=== PATIENT | male | born 1960 | race Caucasian/White ===

== ENCOUNTER → 2017-07-18 14:27 | Outpatient (CLI) | payer OTHER, SELFPAY ==
[2017-07-18 14:47] LABS: Hematocrit 37.7 % (40-54); Hemoglobin 12.6 g/dl (13.0-16.5); Mean Corp Hgb Conc 33.4 g/gl (32-36); Mean Corpuscular Hgb 28.1 pg (27.0-32.0); Mean Platelet Vol. 9.5 fl (6.2-12.0); Platelet Count 253 K/mm3 (150-450); RBC Distribution Width CV 13.4 % (11.6-14.6); RBC Distribution Width SD 40.4 fl (35.1-43.9); Red Blood Count 4.49 M/mm3 (4.6-6.2); White Blood Count 4.4 K/mm3 (4.4-11.0)
[2017-07-18 14:49] LABS: Scan Indicated on CBC? Y/N NO
[2017-07-18 15:19] LABS: Anion Gap 7 (5-15); BUN 24 mg/dL (7-18); BUN/Creat Ratio 16.6 RATIO (10-20); Calcium,Total 8.5 mg/dL (8.5-10.1); Chloride 112 mmol/L (98-107); Creatinine, Serum 1.45 mg/dL (0.70-1.30); EST Glomerular Filtration Rate 53 mL/min (>60); Est Glom Filt Rate - Afr Amer 65 mL/min (>60); Ferritin 9 ng/mL (26-388); Free T3 2.9 pg/mL (2.18-3.98); Glucose 91 mg/dL (74-106); Iron 49 ug/dL (65-175); Iron Binding Capacity,Total 338 ug/dL (250-450); Potassium 4.3 mmol/L (3.5-5.1); Sodium Level 145 mmol/L (136-145); T4 Free Direct 1.18 ng/dL (0.76-1.46); Thyroid Stim Hormone (TSH) 0.57 uIU/mL (0.358-3.74)
== END ==
PROVIDERS: Family Provider Family Medicine Geriatric Medicine; PCP Family Medicine Geriatric Medicine; Visit Provider Internal Medicine Endocrinology, Diabetes & Metabolism
DX: D53.9 Nutritional anemia, unspecified (principal); E03.9 Hypothyroidism, unspecified
CPT/HCPCS: 36415; 80048; 82728; 83540; 83550; 84439; 84443; 84481; 85027

== ENCOUNTER 2017-07-22 08:30 | Outpatient (RCR) | payer OTHER, SELFPAY ==
--- NOTE | 2017-05-27 09:28 | HP.SP.AD_ITS ---
History - History Date of Eval: 05/22/17 Medical Diagnosis (from RX): Cognitive deficits s/p brain surgery Date of Onset of Diagnosis: December 2016 Previous speech therapy: Yes Other Relevant Medical History/Diagnoses/Surgery: Chemo and radation with last tx May 06, 2017. Brain surgery on 02-03-17 Medications related to this diagnosis: Nel Smoking Status: Never smoker Hx Smoking: No Hx Tobacco Use: No - Pain Is pain an issue with your current prescribed condition?: No - Personal Occupation: public transit bus driver for [employer] Right Hearing Abillity: Normal Left Hearing Abillity: Normal Visual Assistive Devices: Glasses Patients Living Arrangements: With Significant Other Patient Allergies - Allergies Allergies doxycycline Allergy (Verified 12/18/16 23:33) Rash ciprofloxacin [From Cipro] Adverse Reaction (Verified 12/18/16 23:33) Nausea/Vom/Diarrhea CLQT - CLQT CLQT Administered: Yes CLQT: Cognitive Linguistic Quick Test (CLQT) is a criterion - referenced assessment designed for adults between the ages of 18 and 89 with known or suspected neurological dysfuntions. The CLQT is to assess strength and weaknesses in five cognitive domains. Severity ratings are within normal limits , mild, moderate, severe deficits. The subtests are as follows: Date: 05/27/17 - Attention Attention: Moderate - Memory Memory: WNL - Executive Functions Executive Functions: Moderate - Language Language: WNL - Visuospatial Skills Visuospatial Skills: Moderate - CLQT Comments Analysis Noted significant attention issues which impacted multiple subtests. He was able to recall 03/01 details of a short story but maintained the intgrety of the story during retelling. His divided attention was noted to be severely impaired. When he heard a sound outside the room, he immediately lost attention to task and was unable to resume it. He was distracted by snow and the shades on the wall that snow made during testing. His reported that he can't not follow through on multistep tasks. Conversation In conversation he was easily distracted and often lost his train of thought. He was able to regain the conversation 50% of the time after given cues. He is very concerned with this aspect as he does interact with his clients often. He intermittently had difficulty with recalling a specific word in conversation also. Plan - Plan Plan: Speech therapy is warranted for asphasia and cognitive deficits. - Recommendations Treatment Warranted: Yes - Frequency Frequency: 2x /Week Duration: 8 weeks Visits in this POC: 16 - Prognosis Prognosis: Good - Goals that are Established: Determination:: Goals will be added/modified as deemed necessary and appropriate. Therapy will be discontinued when results of re-evaluation indicate therapy is no longer needed or lack of progress has been documented. - Goal #1-5 Goal #1: Kye will complete tasks with and without distractions such as sorting , puzzles, word seraches, etc on 4/5 trials to increase attention to task. Goal #2: Kye will use compensatory strategies for word finding deficits on 4/ 5 trials independently. Goal #3: Kye will complete executive functioning tasks such as problem solving , deduction, and reasoning on 4/5 trials. Education - Patient has Indicated that the Following Identified Educational Needs: Cognitively Impaired - Patient Instruction Patient Education: Diagnosis, Treatment Plan, Goals, Home Exercise Program Person Taught: Patient, Family Teaching Method: Discussion Response to teaching: Verbalize understanding
--- NOTE | 2017-09-10 08:17 | HP.SP.DC ---
ST Discharge Summary - Discharged: Discharge: Kye Ruth is discharged from [facility] as of July 22, 2017. He attended a total of 10 visits since his initial evaluation on May 22, 2017. His goals focused on increasing attention, use compensatory strategies to decrease word finding deficits and executive functioning tasks/reasoning tasks. Initially he had very limited attention but by discharge he was able to complete an entire card game with appropriate attention. He was able to divide attention between conversation and other tasks when previous he would have to stop conversation completely to complete an alternate task. By the end of therapy he was exhibiting very minimal word finding deficits and the patient was able to use strategies effectively to continue communication. Initially he was not able to plan, organize, or use judgment to fully thinking through problem solving tasks. His reasoning skills increased significantly to the point that he was able to fully explain rational for 80% of tasks. He continued to show mildly slower processing time but other cognitive goals have been met. He reports attention deficits at home and was given strategies for home carry over to decrease deficits. He requested discharge due to financial reasons. A copy of this discharge summary will be sent to his referring physician.
== END 2017-07-22 19:00 | disposition home or self-care (01) ==
LOC: SP 08:30
PROVIDERS: Family Provider Family Medicine Geriatric Medicine; PCP Family Medicine Geriatric Medicine; Visit Provider Nurse Practitioner Adult Health
DX: R41.89 Other symptoms and signs involving cognitive functions and awareness (principal)
CPT/HCPCS: 92507; 92523

== ENCOUNTER → 2017-09-12 11:21 | Outpatient (CLI) | payer OTHER, SELFPAY ==
[2017-09-12 12:32] LABS: Absolute Lymphocyte Count 1.12 X10^3/ul (0.83-4.51); Absolute Neutrophil Count 2.8 X10^3/uL (2.0-7.7); Basophil# 0.03 X10^3/uL; Basophil% 0.7 % (0-1); Eosinophil# 0.21 X10^3/uL; Eosinophils% 4.6 % (0-5); Hematocrit 39.1 % (40-54); Lymphocyte # 1.12 X10^3/ul (4.0); Lymphocyte % 24.4 % (19-41); Mean Corp Hgb Conc 33.2 g/gl (32-36); Mean Corpuscular Volume 81.1 fL (80-94); Mean Platelet Vol. 9.6 fl (6.2-12.0); Monocyte% 8.7 % (0-10); Neutrophil # 2.83 X10^3/uL (2.7-7.7); Neutrophil % 61.6 % (47-70); Platelet Count 228 K/mm3 (150-450); RBC Distribution Width CV 13.4 % (11.6-14.6); RBC Distribution Width SD 39.6 fl (35.1-43.9); Red Blood Count 4.82 M/mm3 (4.6-6.2); White Blood Count 4.6 K/mm3 (4.4-11.0)
[2017-09-12 12:56] LABS: ALB/GLOB Ratio 1.1 RATIO (0.9-2.4); AST(SGOT) 16 U/L (15-37); Alanine Aminotransfer ALT/SGPT 25 U/L (16-61); Albumin, Serum 3.8 g/dL (3.2-5.0); Alkaline Phosphatase 93 U/L (45-117); Anion Gap 7 (5-15); BUN 23 mg/dL (7-18); BUN/Creat Ratio 17.3 RATIO (10-20); Calcium,Total 8.7 mg/dL (8.5-10.1); Chloride 109 mmol/L (98-107); Creatinine, Serum 1.33 mg/dL (0.70-1.30); EST Glomerular Filtration Rate 59 mL/min (>60); Est Glom Filt Rate - Afr Amer 71 mL/min (>60); Globulin 3.5 g/dL (2.2-4.2); Glucose 83 mg/dL (74-106); Potassium 4.7 mmol/L (3.5-5.1); Protein, Total 7.3 g/dL (6.4-8.2); Sodium Level 143 mmol/L (136-145); Thyroid Stim Hormone (TSH) 4.06 uIU/mL (0.358-3.74)
[2017-09-12 13:09] LABS: POSITIVE COUNT NO; POSITIVE DIFFERENTIAL NO; POSITIVE MORPHOLOGY NO
[2017-09-13 14:15] LABS: Hep C Antibodies <0.1 s/co ratio (0.0-0.9)
== END ==
PROVIDERS: Family Provider Family Medicine Geriatric Medicine; PCP Family Medicine Geriatric Medicine; Visit Provider Family Medicine Geriatric Medicine
DX: R53.83 Other fatigue (principal); Z12.5 Encounter for screening for malignant neoplasm of prostate; Z13.89 Encounter for screening for other disorder
CPT/HCPCS: 36415; 80053; 84443; 85025; 86803

== ENCOUNTER → 2018-02-20 11:45 | Outpatient (CLI) | payer OTHER, SELFPAY ==
[2018-02-20 12:45] LABS: Absolute Lymphocyte Count 1.35 X10^3/ul (0.83-4.51); Absolute Neutrophil Count 4.5 X10^3/uL (2.0-7.7); Basophil# 0.03 X10^3/uL; Basophil% 0.5 % (0-1); Eosinophils% 4.5 % (0-5); Hemoglobin 13.1 g/dl (13.0-16.5); Lymphocyte # 1.35 X10^3/ul (4.0); Lymphocyte % 20.4 % (19-41); Mean Corp Hgb Conc 33.6 g/gl (32-36); Mean Corpuscular Hgb 29.2 pg (27.0-32.0); Mean Corpuscular Volume 86.9 fL (80-94); Mean Platelet Vol. 10.3 fl (6.2-12.0); Monocyte# 0.43 X10^3/uL; Monocyte% 6.5 % (0-10); Neutrophil # 4.51 X10^3/uL (2.7-7.7); Neutrophil % 67.9 % (47-70); Platelet Count 224 K/mm3 (150-450); RBC Distribution Width CV 13.9 % (11.6-14.6); RBC Distribution Width SD 42.2 fl (35.1-43.9); Red Blood Count 4.49 M/mm3 (4.6-6.2); White Blood Count 6.6 K/mm3 (4.4-11.0)
[2018-02-20 12:49] LABS: POSITIVE COUNT NO; POSITIVE DIFFERENTIAL NO; POSITIVE MORPHOLOGY NO
[2018-02-20 13:14] LABS: ALB/GLOB Ratio 0.9 RATIO (0.9-2.4); AST(SGOT) 12 U/L (15-37); Alanine Aminotransfer ALT/SGPT 21 U/L (16-61); Albumin, Serum 3.3 g/dL (3.2-5.0); Alkaline Phosphatase 99 U/L (45-117); Anion Gap 6 (5-15); BUN 24 mg/dL (7-18); BUN/Creat Ratio 19.7 RATIO (10-20); Calcium,Total 8.4 mg/dL (8.5-10.1); Chloride 109 mmol/L (98-107); Creatinine, Serum 1.22 mg/dL (0.70-1.30); EST Glomerular Filtration Rate 65 mL/min (>60); Est Glom Filt Rate - Afr Amer 79 mL/min (>60); Free T3 2.1 pg/mL (2.18-3.98); Globulin 3.5 g/dL (2.2-4.2); Glucose 92 mg/dL (74-106); Potassium 4.1 mmol/L (3.5-5.1); Protein, Total 6.8 g/dL (6.4-8.2); Sodium Level 141 mmol/L (136-145); T4 Free Direct 1.06 ng/dL (0.76-1.46); Thyroid Stim Hormone (TSH) 4.48 uIU/mL (0.358-3.74)
== END ==
PROVIDERS: Family Provider Family Medicine Geriatric Medicine; PCP Family Medicine Geriatric Medicine; Referring Provider Internal Medicine Endocrinology, Diabetes & Metabolism; Visit Provider Internal Medicine Endocrinology, Diabetes & Metabolism
DX: E03.9 Hypothyroidism, unspecified (principal)
CPT/HCPCS: 36415; 80053; 84439; 84443; 84481; 85025

== ENCOUNTER → 2018-03-23 10:05 | Outpatient (CLI) | payer OTHER, SELFPAY ==
[2018-03-23 12:04] LABS: ALB/GLOB Ratio 1.1 RATIO (0.9-2.4); AST(SGOT) 14 U/L (15-37); Alanine Aminotransfer ALT/SGPT 23 U/L (16-61); Albumin, Serum 3.6 g/dL (3.2-5.0); Alkaline Phosphatase 105 U/L (45-117); Anion Gap 11 (5-15); BUN 23 mg/dL (7-18); BUN/Creat Ratio 19.5 RATIO (10-20); Calcium,Total 8.5 mg/dL (8.5-10.1); Chloride 108 mmol/L (98-107); Creatinine, Serum 1.18 mg/dL (0.70-1.30); EST Glomerular Filtration Rate 67 mL/min (>60); Est Glom Filt Rate - Afr Amer 82 mL/min (>60); Free T3 2.6 pg/mL (2.18-3.98); Globulin 3.3 g/dL (2.2-4.2); Glucose 85 mg/dL (74-106); Potassium 4.2 mmol/L (3.5-5.1); Protein, Total 6.9 g/dL (6.4-8.2); Sodium Level 144 mmol/L (136-145); T4 Free Direct 1.32 ng/dL (0.76-1.46); Thyroid Stim Hormone (TSH) 1.35 uIU/mL (0.358-3.74)
== END ==
PROVIDERS: Family Provider Family Medicine Geriatric Medicine; PCP Family Medicine Geriatric Medicine; Referring Provider Internal Medicine Endocrinology, Diabetes & Metabolism; Visit Provider Internal Medicine Endocrinology, Diabetes & Metabolism
DX: E03.9 Hypothyroidism, unspecified (principal)
CPT/HCPCS: 36415; 80053; 84439; 84443; 84481

== ENCOUNTER → 2018-08-13 15:25 | Outpatient (CLI) | payer OTHER, SELFPAY ==
[2018-08-13 17:00] LABS: ALB/GLOB Ratio 1.2 RATIO (0.9-2.4); AST(SGOT) 16 U/L (15-37); Alanine Aminotransfer ALT/SGPT 22 U/L (16-61); Albumin, Serum 3.7 g/dL (3.2-5.0); Alkaline Phosphatase 93 U/L (45-117); Anion Gap 6 (5-15); BUN 25 mg/dL (7-18); BUN/Creat Ratio 18.7 RATIO (10-20); Calcium,Total 8.4 mg/dL (8.5-10.1); Chloride 112 mmol/L (98-107); Creatinine, Serum 1.34 mg/dL (0.70-1.30); EST Glomerular Filtration Rate 58 mL/min (>60); Est Glom Filt Rate - Afr Amer 70 mL/min (>60); Free T3 2.1 pg/mL (2.18-3.98); Globulin 3.1 g/dL (2.2-4.2); Glucose 94 mg/dL (74-106); Potassium 4.5 mmol/L (3.5-5.1); Protein, Total 6.8 g/dL (6.4-8.2); Sodium Level 145 mmol/L (136-145); T4 Free Direct 1.08 ng/dL (0.76-1.46); Thyroid Stim Hormone (TSH) 4.08 uIU/mL (0.358-3.74)
== END ==
PROVIDERS: Family Provider Family Medicine Geriatric Medicine; PCP Family Medicine Geriatric Medicine; Referring Provider Internal Medicine Endocrinology, Diabetes & Metabolism; Visit Provider Internal Medicine Endocrinology, Diabetes & Metabolism
DX: E03.9 Hypothyroidism, unspecified (principal)
CPT/HCPCS: 36415; 80053; 84439; 84443; 84481

== ENCOUNTER → 2018-09-14 | Outpatient (CLI) | payer OTHER, SELFPAY ==
[2018-09-14 12:36] LABS: Absolute Lymphocyte Count 1.38 X10^3/ul (0.83-4.51); Basophil# 0.03 X10^3/uL; Basophil% 0.6 % (0-1); Eosinophil# 0.24 X10^3/uL; Eosinophils% 4.7 % (0-5); Hematocrit 42.5 % (40-54); Hemoglobin 14.9 g/dl (13.0-16.5); Lymphocyte # 1.38 X10^3/ul (4.0); Lymphocyte % 27.2 % (19-41); Mean Corp Hgb Conc 35.1 g/gl (32-36); Mean Corpuscular Hgb 30.6 pg (27.0-32.0); Mean Corpuscular Volume 87.3 fL (80-94); Mean Platelet Vol. 10.1 fl (6.2-12.0); Monocyte# 0.38 X10^3/uL; Monocyte% 7.5 % (0-10); Neutrophil # 3.03 X10^3/uL (2.7-7.7); Neutrophil % 59.6 % (47-70); Platelet Count 222 K/mm3 (150-450); RBC Distribution Width CV 12.8 % (11.6-14.6); RBC Distribution Width SD 39.9 fl (35.1-43.9); Red Blood Count 4.87 M/mm3 (4.6-6.2); White Blood Count 5.1 K/mm3 (4.4-11.0)
[2018-09-14 12:47] LABS: POSITIVE COUNT NO; POSITIVE DIFFERENTIAL NO; POSITIVE MORPHOLOGY NO
[2018-09-14 13:01] LABS: ALB/GLOB Ratio 1.1 RATIO (0.9-2.4); AST(SGOT) 14 U/L (15-37); Alanine Aminotransfer ALT/SGPT 26 U/L (16-61); Albumin, Serum 3.5 g/dL (3.2-5.0); Alkaline Phosphatase 97 U/L (45-117); Anion Gap 10 (5-15); BUN 22 mg/dL (7-18); BUN/Creat Ratio 15.1 RATIO (10-20); Calcium,Total 8.4 mg/dL (8.5-10.1); Chloride 108 mmol/L (98-107); Creatinine, Serum 1.46 mg/dL (0.70-1.30); EST Glomerular Filtration Rate 53 mL/min (>60); Est Glom Filt Rate - Afr Amer 64 mL/min (>60); Globulin 3.2 g/dL (2.2-4.2); Glucose 89 mg/dL (74-106); Potassium 4.3 mmol/L (3.5-5.1); Protein, Total 6.7 g/dL (6.4-8.2); Sodium Level 143 mmol/L (136-145); Thyroid Stim Hormone (TSH) 1.98 uIU/mL (0.358-3.74)
== END | disposition home or self-care (01) ==
LOC: POLAB3 08:47
PROVIDERS: Family Provider Family Medicine Geriatric Medicine; PCP Family Medicine Geriatric Medicine; Visit Provider Family Medicine Geriatric Medicine
DX: R53.83 Other fatigue (principal)
CPT/HCPCS: 36415; 80053; 84443; 85025

== ENCOUNTER → 2018-11-04 14:20 | Outpatient (CLI) | payer OTHER, SELFPAY ==
[2018-11-04 15:43] LABS: Erythrocyte Sedimentation Rate 3 mm/hr (0-20)
[2018-11-04 15:44] LABS: Anion Gap 8 (5-15); BUN 30 mg/dL (7-18); CRP 2.94 mg/L (0.0-3.0); Calcium,Total 8.7 mg/dL (8.5-10.1); Chloride 109 mmol/L (98-107); Creatinine, Serum 1.25 mg/dL (0.70-1.30); EST Glomerular Filtration Rate 63 mL/min (>60); Est Glom Filt Rate - Afr Amer 76 mL/min (>60); Glucose 97 mg/dL (74-106); Potassium 4.2 mmol/L (3.5-5.1); Sodium Level 142 mmol/L (136-145); Uric Acid 5.6 mg/dL (3.5-7.2)
[2018-11-04 15:51] LABS: Basophil# 0.04 X10^3/uL; Basophil% 0.5 % (0-1); Eosinophils% 2.5 % (0-5); Hematocrit 42.4 % (40-54); Hemoglobin 14.6 g/dL (13.0-16.5); Lymphocyte % 15.1 % (19-41); Mean Corp Hgb Conc 34.4 g/dL (32-36); Mean Corpuscular Hgb 30.7 pg (27.0-32.0); Mean Corpuscular Volume 89.1 fL (80-94); Mean Platelet Vol. 9.8 fl (6.2-12.0); Monocyte% 6.3 % (0-10); NRBC Flagged by Analyzer 0 % (0-5); Neutrophil # 5.99 X10^3/uL (2.7-7.7); Neutrophil % 75.3 % (47-70); Platelet Count 215 K/mm3 (150-450); RBC Distribution Width CV 12.4 % (11.6-14.6); RBC Distribution Width SD 40.1 fl (35.1-43.9); Red Blood Count 4.76 M/mm3 (4.6-6.2)
== END ==
PROVIDERS: Family Provider Family Medicine Geriatric Medicine; PCP Family Medicine Geriatric Medicine; Visit Provider Family Medicine Geriatric Medicine
DX: M10.9 Gout, unspecified (principal)
CPT/HCPCS: 36415; 80048; 84550; 85025; 85652; 86140

== ENCOUNTER → 2018-11-04 14:55 | Outpatient (CLI) | payer OTHER, SELFPAY ==
--- NOTE | 2018-11-04 15:00 | RAD_ITS ---
STUDY: X-RAY - RIGHT HAND REASON FOR EXAM: Male, 58 years old. Right arm pain started today TECHNIQUE: 3 view(s) of the hand. COMPARISON: 03/06/2015 FINDINGS: Mild radiocarpal osteoarthritis. Stable osteoarthritis of the distal radioulnar joint. Normal visualized carpal bones. Normal carpal articulations Normal carpometacarpal articulation of the thumb. Normal second through fifth carpometacarpal joints. Stable remote deformity of the fifth metacarpal. Normal metacarpophalangeal joint of the thumb. Normal interphalangeal joint of the thumb. Normal proximal and distal phalanges of the thumb. Normal metacarpophalangeal joints of the second through fifth fingers. Normal proximal and distal interphalangeal joints of the second through fifth fingers. Stable remote deformity of the second distal phalanx. Calcifications of the triangle fibrocartilage. RAD/Hand Min 3 Views IMPRESSION: Multiple degenerative changes as described. No acute osseous abnormality is evident. Electronically Signed: Jimmy Vasquez MD at 15:29 EDT Tel , Service support ,
--- NOTE | 2018-11-04 15:02 | RAD_ITS ---
STUDY: X-RAY - RIGHT ELBOW REASON FOR EXAM: Male, 58 years old. Right arm pain started yesterday TECHNIQUE: 3 view(s) of the elbow. COMPARISON: None. FINDINGS: Remote deformity of the mid radius. Chondrocalcinosis involving the radiocapitellar joint. Calcific tendinitis of the triceps. RAD/Elbow min 3 Views IMPRESSION: Chondrocalcinosis involving the radiocapitellar joint. Calcific tendinitis of the triceps. No acute osseous abnormality is evident. Electronically Signed: Jimmy Vasquez MD at 15:32 EDT Tel , Service support ,
--- NOTE | 2018-11-04 15:02 | RAD_ITS ---
STUDY: X-RAY - RIGHT WRIST REASON FOR EXAM: Male, 58 years old. Right arm pain started today TECHNIQUE: 3 view(s) of the wrist were obtained. COMPARISON: None. FINDINGS: Normal visualized distal radius and ulna. Mild radiocarpal osteoarthritis. Stable osteoarthritis of the distal radioulnar joint. Normal carpal bones. Normal carpal articulations. Normal carpometacarpal articulation of the thumb. Normal second through fifth carpometacarpal articulations. Normal visualized metacarpal bones. Calcifications of the triangle fibrocartilage. RAD/Wrist min 3 Views IMPRESSION: Mild radiocarpal osteoarthritis. Stable osteoarthritis of the distal radioulnar joint. Calcifications of the triangle fibrocartilage. Electronically Signed: Jimmy Vasquez MD at 15:59 EDT Tel , Service support ,
--- NOTE | 2018-11-04 15:04 | VDUE_ITS ---
Reason For Study: Localized edema Right Proximal Left Proximal Right jugular vein is spontaneous, widely Left jugular vein is spontaneous, widely patent, phasic, with no intraluminal patent, phasic, with no intraluminal echogenicity noted. echogenicity noted. Right subclavian vein is spontaneous, widely Left subclavian vein is spontaneous, widely patent, phasic, with no intraluminal patent, phasic, with no intraluminal echogenicity noted. echogenicity noted. Right Lower Arm Left Arm Right radial vein is compressible. Left axillary vein is spontaneous, patent, Right ulnar vein is compressible. phasic, competent, compressible and Right Arm demonstrates augmentation. Right axillary vein is spontaneous, patent, Left brachial vein is compressible. phasic, competent, compressible and Left cephalic vein is compressible. demonstrates augmentation. Left basilic vein is compressible. Right brachial vein is compressible. Left Lower Arm Right cephalic vein is compressible. Left radial vein is compressible. Right basilic vein is compressible. Left ulnar vein is compressible. Nonvascularized palpable structure noted in the right mid bicep measuring approximently 1.89 x 2.13 x 2.68 cm. Patient Safety Prelim to [place]. Interpretation Summary Deep veins of the upper extremities are bilaterally patent and compressible segmentally. There is no evidence of deep vein thrombosis on either side. The superficial veins of the upper extremities, the basilic and cephalic veins, are patent and compressible bilaterally. There is no evidence of upper extremity superficial thrombophlebitis involving the veins imaged. A non-vascular, hypoechoic structure is noted in the right mid-bicep, measuring 1.89 cm x 2.13 cm x 2.68 cm. This may represent a hematoma. Clinical correlation is advised. Ordering Physician: Tamir Ireland Referring Physician: Tamir Ireland Chi Performed By: Jenniffer Curry RVT ?
--- NOTE | 2018-11-04 16:15 | CT_ITS ---
STUDY: CT BRAIN WITHOUT CONTRAST REASON FOR EXAM: Male, 58 years old. BRAIN CANCER - GLIOMA WITH REMOVAL AND RADIATION AND CHEMO. HISTORY OF KIDNEY AND BLADDER CANCER ALSO RADIATION DOSAGE (If Supplied By Facility): CTDIvol = ( 44.99 ) mGy, DLP = ( 829.85 ) mGycm TECHNIQUE: Transaxial CT imaging of the brain was performed without administration of intravenous contrast material. Individualized dose optimization techniques were used for this CT. COMPARISON: 12/19/2016 FINDINGS: Normal soft tissue structures. Left frontal craniotomy. Bilateral retinal calcifications. Normal size ventricles and extra-axial spaces for the patient's age. Left frontal postoperative encephalomalacia and gliosis. Normal basal ganglia and thalami. Normal brainstem. Normal cerebellum. There is no intracranial hemorrhage. There are no findings of an acute ischemic infarction. Normal visualized paranasal sinuses. CT/Brain/Head without Contrast IMPRESSION: Left frontal postoperative encephalomalacia and gliosis. No new intracranial mass effect. No CT evidence of acute infarct or hemorrhage. Electronically Signed: Jimmy Vasquez MD at 16:46 EDT Tel , Service support ,
== END ==
PROVIDERS: Family Provider Family Medicine Geriatric Medicine; PCP Family Medicine Geriatric Medicine; Referring Provider Family Medicine Geriatric Medicine; Visit Provider Family Medicine Geriatric Medicine
DX: M25.521 Pain in right elbow (principal); M79.601 Pain in right arm; C71.9 Malignant neoplasm of brain, unspecified; R60.0 Localized edema
CPT/HCPCS: 70450; 73080; 73110; 73130; 93970

== ENCOUNTER → 2019-02-23 11:23 | Outpatient (CLI) | payer OTHER, SELFPAY ==
[2019-02-23 14:47] LABS: ALB/GLOB Ratio 1.2 RATIO (0.9-2.4); AST(SGOT) 17 U/L (15-37); Alanine Aminotransfer ALT/SGPT 27 U/L (16-61); Albumin, Serum 3.8 g/dL (3.2-5.0); Alkaline Phosphatase 104 U/L (45-117); Anion Gap 6 (5-15); BUN 21 mg/dL (7-18); BUN/Creat Ratio 15.3 RATIO (10-20); Calcium,Total 8.5 mg/dL (8.5-10.1); Chloride 108 mmol/L (98-107); Cholesterol 191 mg/dL (200); Creatinine, Serum 1.37 mg/dL (0.70-1.30); EST Glomerular Filtration Rate 57 mL/min (>60); Est Glom Filt Rate - Afr Amer 69 mL/min (>60); Free T3 2.1 pg/mL (2.18-3.98); Globulin 3.3 g/dL (2.2-4.2); Glucose 81 mg/dL (74-106); High Density Lipoprotein 44 mg/dL; Potassium 3.8 mmol/L (3.5-5.1); Protein, Total 7.1 g/dL (6.4-8.2); Sodium Level 139 mmol/L (136-145); T4 Free Direct 1.21 ng/dL (0.76-1.46); Thyroid Stim Hormone (TSH) 2.49 uIU/mL (0.358-3.74); Triglycerides 242 mg/dL; Very Low Density Lipoprotein 48 mg/dL (5-40)
== END ==
PROVIDERS: Family Provider Family Medicine Geriatric Medicine; PCP Family Medicine Geriatric Medicine; Referring Provider Internal Medicine Endocrinology, Diabetes & Metabolism; Visit Provider Internal Medicine Endocrinology, Diabetes & Metabolism
DX: E03.9 Hypothyroidism, unspecified (principal)
CPT/HCPCS: 36415; 80053; 80061; 84439; 84443; 84481

== ENCOUNTER → 2019-03-24 15:59 | Outpatient (CLI) | payer OTHER, SELFPAY | PROVIDERS: Family Provider Family Medicine Geriatric Medicine; PCP Family Medicine Geriatric Medicine; Visit Provider Family Medicine Geriatric Medicine | DX: N39.0 Urinary tract infection, site not specified (principal) | CPT/HCPCS: 87077; 87086; 87088; 87186 ==

== ENCOUNTER → 2019-07-30 10:51 | Outpatient (CLI) | payer OTHER, MEDICARE, SELFPAY ==
--- NOTE | 2019-07-30 11:01 | VDLE_ITS ---
Reason For Study: Pain Procedure LEFT Exam performed in department. GSV is normal. A preliminary report was called and/or faxed CFV is compressible, spontaneous, phasic, to Saeed. competent, and demonstrates normal augmentation. FV is compressible, spontaneous, phasic, competent and demonstrates normal augmentation. POP V is compressible, spontaneous, phasic, competent and demonstrates normal augmentation. T/P Trunk is compressible. PTV is compressible. LT PerV is compressible. Interpretation Summary Deep veins of the left lower extremity are patent and compressible segmentally. There is no evidence of left lower extremity deep vein thrombosis. Valvular competence appears intact within the proximal deep venous system on the left . The left great saphenous vein appears patent and compressible segmentally. Ordering Physician: Marco A Saeed Referring Physician: Tamir Ireland Chi Performed By: Jenniffer Curry RVT
== END ==
PROVIDERS: PCP Family Medicine Geriatric Medicine; Referring Provider Surgery; Visit Provider Surgery
DX: I87.2 Venous insufficiency (chronic) (peripheral) (principal); M79.662 Pain in left lower leg; M79.89 Other specified soft tissue disorders
CPT/HCPCS: 93971

== ENCOUNTER → 2020-02-21 09:02 | Outpatient (CLI) | payer OTHER, MEDICARE, SELFPAY ==
[2020-02-21 12:05] LABS: Absolute Lymphocyte Count 1.14 X10^3/uL (0.83-4.51); Basophil# 0.04 X10^3/uL; Basophil% 0.8 % (0-1); Eosinophil# 0.18 X10^3/uL; Eosinophils% 3.8 % (0-5); Hematocrit 43.8 % (40-54); Hemoglobin 14.5 g/dL (13.0-16.5); Lymphocyte # 1.14 X10^3/ul (4.0); Lymphocyte % 24.1 % (19-41); Mean Corp Hgb Conc 33.1 g/dL (32-36); Mean Corpuscular Volume 90.7 fL (80-94); Mean Platelet Vol. 9.6 fl (6.2-12.0); Monocyte# 0.38 X10^3/uL; NRBC Flagged by Analyzer 0 % (0-5); Neutrophil # 2.99 X10^3/uL (2.7-7.7); Neutrophil % 63.1 % (47-70); Platelet Count 246 K/mm3 (150-450); RBC Distribution Width CV 12.3 % (11.6-14.6); RBC Distribution Width SD 40.5 fl (35.1-43.9); Red Blood Count 4.83 M/mm3 (4.6-6.2); White Blood Count 4.7 K/mm3 (4.4-11.0)
[2020-02-21 13:09] LABS: ALB/GLOB Ratio 1.1 RATIO (0.9-2.4); AST(SGOT) 15 U/L (15-37); Alanine Aminotransfer ALT/SGPT 30 U/L (16-61); Albumin, Serum 3.6 g/dL (3.2-5.0); Alkaline Phosphatase 113 U/L (45-117); Anion Gap 6 (5-15); BUN 23 mg/dL (7-18); BUN/Creat Ratio 16.1 RATIO (10-20); Chloride 110 mmol/L (98-107); Creatinine, Serum 1.43 mg/dL (0.70-1.30); EST Glomerular Filtration Rate 54 mL/min (>60); Est Glom Filt Rate - Afr Amer 65 mL/min (>60); Globulin 3.3 g/dL (2.2-4.2); Glucose 85 mg/dL (74-106); Potassium 4.5 mmol/L (3.5-5.1); Protein, Total 6.9 g/dL (6.4-8.2); Sodium Level 141 mmol/L (136-145); Thyroid Stim Hormone (TSH) 0.41 uIU/mL (0.358-3.74)
== END ==
PROVIDERS: PCP Family Medicine Geriatric Medicine; Visit Provider Family Medicine Geriatric Medicine
DX: R53.83 Other fatigue (principal); M10.9 Gout, unspecified
CPT/HCPCS: 36415; 80053; 84443; 84550; 85025

== ENCOUNTER → 2020-07-05 09:12 | Outpatient (CLI) | payer OTHER, MEDICARE, SELFPAY ==
[2020-07-05 10:22] LABS: Absolute Lymphocyte Count 1.34 X10^3/uL (0.83-4.51); Absolute Neutrophil Count 3.9 X10^3/uL (2.0-7.7); Basophil# 0.06 X10^3/uL; Eosinophil# 0.23 X10^3/uL; Eosinophils% 3.8 % (0-5); Hematocrit 45.5 % (40-54); Hemoglobin 15.4 g/dL (13.0-16.5); Lymphocyte # 1.34 X10^3/ul (4.0); Mean Corp Hgb Conc 33.8 g/dL (32-36); Mean Corpuscular Hgb 30.9 pg (27.0-32.0); Mean Corpuscular Volume 91.2 fL (80-94); Mean Platelet Vol. 9.6 fl (6.2-12.0); Monocyte# 0.56 X10^3/uL; Monocyte% 9.2 % (0-10); NRBC Flagged by Analyzer 0 % (0-5); Neutrophil % 63.8 % (47-70); Platelet Count 297 K/mm3 (150-450); RBC Distribution Width CV 12.5 % (11.6-14.6); RBC Distribution Width SD 41.7 fl (35.1-43.9); Red Blood Count 4.99 M/mm3 (4.6-6.2); White Blood Count 6.1 K/mm3 (4.4-11.0)
[2020-07-05 10:26] LABS: ALB/GLOB Ratio 1.1 RATIO (0.9-2.4); AST(SGOT) 17 U/L (15-37); Alanine Aminotransfer ALT/SGPT 37 U/L (16-61); Albumin, Serum 3.7 g/dL (3.2-5.0); Alkaline Phosphatase 124 U/L (45-117); Anion Gap 5 (5-15); BUN 21 mg/dL (7-18); BUN/Creat Ratio 15.1 RATIO (10-20); Calcium,Total 8.5 mg/dL (8.5-10.1); Chloride 108 mmol/L (98-107); Creatinine, Serum 1.39 mg/dL (0.70-1.30); EST Glomerular Filtration Rate 55 mL/min (>60); Est Glom Filt Rate - Afr Amer 67 mL/min (>60); Globulin 3.4 g/dL (2.2-4.2); Glucose 85 mg/dL (74-106); Potassium 4.1 mmol/L (3.5-5.1); Protein, Total 7.1 g/dL (6.4-8.2); Sodium Level 141 mmol/L (136-145); T4 Free Direct 1.41 ng/dL (0.76-1.46); Thyroid Stim Hormone (TSH) 1.48 uIU/mL (0.358-3.74)
== END ==
PROVIDERS: PCP Family Medicine Geriatric Medicine; Referring Provider Internal Medicine Endocrinology, Diabetes & Metabolism; Visit Provider Internal Medicine Endocrinology, Diabetes & Metabolism
DX: E03.9 Hypothyroidism, unspecified (principal)
CPT/HCPCS: 36415; 80053; 84439; 84443; 85025

== ENCOUNTER → 2020-12-13 10:02 | Outpatient (CLI) | payer OTHER, MEDICARE, SELFPAY ==
[2020-12-13 11:31] LABS: Free T3 2.2 pg/mL (2.18-3.98); Prolactin 8.3 ng/mL; T4 Free Direct 1.13 ng/dL (0.76-1.46)
[2020-12-14 19:41] LABS: Adrenocorticotropic Hormone 23.3 pg/mL (7.2-63.3)
== END ==
PROVIDERS: PCP Family Medicine Geriatric Medicine; Referring Provider Internal Medicine Endocrinology, Diabetes & Metabolism; Visit Provider Internal Medicine Endocrinology, Diabetes & Metabolism
DX: E03.9 Hypothyroidism, unspecified (principal); D49.7 Neoplasm of unspecified behavior of endocrine glands and other parts of nervous system; D32.9 Benign neoplasm of meninges, unspecified
CPT/HCPCS: 36415; 82024; 84146; 84439; 84481

== ENCOUNTER → 2021-02-26 09:07 | Outpatient (CLI) | payer MEDICARE, SELFPAY ==
[2021-02-26 12:38] LABS: Absolute Lymphocyte Count 1.32 X10^3/uL (0.83-4.51); Absolute Neutrophil Count 4.1 X10^3/uL (2.0-7.7); Basophil# 0.04 X10^3/uL; Basophil% 0.6 % (0-1); Eosinophil# 0.21 X10^3/uL; Eosinophils% 3.4 % (0-5); Hematocrit 42.3 % (40-54); Hemoglobin 15.1 g/dL (13.0-16.5); Lymphocyte # 1.32 X10^3/ul (0.83-4.51); Lymphocyte % 21.4 % (19-41); Mean Corp Hgb Conc 35.7 g/dL (32-36); Mean Corpuscular Hgb 31.9 pg (27.0-32.0); Mean Corpuscular Volume 89.2 fL (80-94); Mean Platelet Vol. 9.9 fl (6.2-12.0); Monocyte# 0.46 X10^3/uL; Monocyte% 7.4 % (0-10); NRBC Flagged by Analyzer 0 % (0-5); Neutrophil # 4.13 X10^3/uL (2.7-7.7); Neutrophil % 66.9 % (47-70); Platelet Count 236 K/mm3 (150-450); RBC Distribution Width CV 12.4 % (11.6-14.6); RBC Distribution Width SD 40.7 fl (35.1-43.9); Red Blood Count 4.74 M/mm3 (4.6-6.2); White Blood Count 6.2 K/mm3 (4.4-11.0)
[2021-02-26 12:57] LABS: AST(SGOT) 25 U/L (15-37); Alanine Aminotransfer ALT/SGPT 61 U/L (16-61); Albumin, Serum 3.4 g/dL (3.2-5.0); Alkaline Phosphatase 97 U/L (45-117); Anion Gap 4 (5-15); BUN 22 mg/dL (7-18); BUN/Creat Ratio 14.9 RATIO (10-20); Calcium,Total 8.4 mg/dL (8.5-10.1); Chloride 109 mmol/L (98-107); Creatinine, Serum 1.48 mg/dL (0.70-1.30); EST Glomerular Filtration Rate 51 mL/min (>60); Est Glom Filt Rate - Afr Amer 62 mL/min (>60); Globulin 3.5 g/dL (2.2-4.2); Glucose 98 mg/dL (74-106); PSA,Total - Annual Screen < 0.01 ng/mL (0.00-4.00); Protein, Total 6.9 g/dL (6.4-8.2); Sodium Level 138 mmol/L (136-145); Thyroid Stim Hormone (TSH) 1.04 uIU/mL (0.358-3.74)
== END ==
PROVIDERS: PCP Family Medicine Geriatric Medicine; Visit Provider Family Medicine Geriatric Medicine
DX: R53.83 Other fatigue (principal); M10.9 Gout, unspecified; Z12.5 Encounter for screening for malignant neoplasm of prostate
CPT/HCPCS: 36415; 80053; 84153; 84443; 84550; 85025; G0103

== ENCOUNTER 2021-06-06 19:25 | Emergency (ER) | payer MEDICARE, SELFPAY ==
[2021-06-06] VITALS (10 sets, daily range): BP systolic 71–114; BP diastolic 51–76; PULSE 18–133; RESP 18–24; TEMP 35.1–36.8; O2SAT 87–100; BMI 33.3
--- NOTE | 2021-06-06 19:53 | CT_ITS ---
INDICATION: obstruction EXAMINATION: CT Abdomen And Pelvis W/O Contrast Injection TECHNIQUE: Helically acquired images were obtained of the abdomen and pelvis without the use of IV contrast. A radiation dose optimization technique was used for this scan. Oral contrast: None. COMPARISON: 10/18/2015 FINDINGS: Evaluation of the solid organs and vascular structures is limited without intravenous contrast. Visualized lung bases: Right basilar atelectasis. Liver: Scattered hepatic cysts. Gallbladder: Few small intraluminal stones seen. Spleen: Unremarkable Pancreas: Unremarkable Adrenal Glands: Unremarkable Kidneys: Left kidney is surgically absent. Multiple cysts in the right kidney. Vasculature: Unremarkable GI Tract: Multiple dilated loops of small bowel measuring up to 3.6 cm in diameter. There is a large supraumbilical hernia containing fat and multiple loops of small bowel. Additional smaller left periumbilical hernia is present. Right lower quadrant ileostomy. Left inguinal hernia containing fat and a small segment of the sigmoid colon. Lymphadenopathy: None Peritoneum: No ascites. Bladder: Unremarkable Reproductive organs: Unremarkable Bones/Soft tissues: There are diffuse degenerative changes of the spine. CT/Abdomen/Pelvis without Cont IMPRESSION: Findings concerning for small bowel obstruction with transition point at a periumbilical hernia. Additional smaller left periumbilical hernia is present as well as a left inguinal hernia containing fat and a small segment of sigmoid colon. Electronically Signed: Rudy Valle MD at 21:29 EST ,
[2021-06-06] MEDS: 0.9% Normal Saline 1,000 ML 125 ML IV (20:09)
[2021-06-06] MEDS: Ondansetron 4 MG/2 ML Vial IV (20:09)
[2021-06-06 20:13] LABS: Absolute Lymphocyte Count 1.15 X10^3/uL (0.83-4.51); Absolute Neutrophil Count 13.4 X10^3/uL (2.0-7.7); Basophil# 0.03 X10^3/uL; Basophil% 0.2 % (0-1); Hematocrit 52.7 % (40-54); Hemoglobin 19.1 g/dL (13.0-16.5); Lymphocyte # 1.15 X10^3/ul (0.83-4.51); Lymphocyte % 7.3 % (19-41); Mean Corp Hgb Conc 36.2 g/dL (32-36); Mean Corpuscular Hgb 32.2 pg (27.0-32.0); Mean Corpuscular Volume 88.7 fL (80-94); Mean Platelet Vol. 9.9 fl (6.2-12.0); Monocyte# 1.25 X10^3/uL; Monocyte% 7.9 % (0-10); NRBC Flagged by Analyzer 0 % (0-5); Neutrophil # 13.36 X10^3/uL (2.7-7.7); Neutrophil % 84.3 % (47-70); Platelet Count 361 K/mm3 (150-450); RBC Distribution Width CV 12.5 % (11.6-14.6); RBC Distribution Width SD 40.7 fl (35.1-43.9); Red Blood Count 5.94 M/mm3 (4.6-6.2)
[2021-06-06 20:32] LABS: White Blood Count 15.8 K/mm3 (4.4-11.0)
[2021-06-06 20:35] LABS: AST(SGOT) 18 U/L (15-37); Alanine Aminotransfer ALT/SGPT 49 U/L (16-61); Albumin, Serum 4.2 g/dL (3.2-5.0); Alkaline Phosphatase 103 U/L (45-117); Anion Gap 10 (5-15); BUN 48 mg/dL (7-18); BUN/Creat Ratio 13.1 RATIO (10-20); Calcium,Total 10.6 mg/dL (8.5-10.1); Chloride 104 mmol/L (98-107); Creatinine, Serum 3.67 mg/dL (0.70-1.30); EST Glomerular Filtration Rate 18 mL/min (>60); Est Glom Filt Rate - Afr Amer 22 mL/min (>60); Estimated Creatinine Clearance 18.62 ml/min; Globulin 4.3 g/dL (2.2-4.2); Glucose 165 mg/dL (74-106); Lipase 39 U/L (73-393); Protein, Total 8.5 g/dL (6.4-8.2); Sodium Level 138 mmol/L (136-145)
--- NOTE | 2021-06-06 21:08 | EKG12_ITS ---
Test Reason : WEAKNESS Blood Pressure : / mmHG Vent. Rate : 081 BPM Atrial Rate : 081 BPM P-R Int : 168 ms QRS Dur : 082 ms QT Int : 364 ms P-R-T Axes : 040 012 015 degrees QTc Int : 422 ms Normal sinus rhythm Inferior infarct , age undetermined, cannot be excluded Abnormal ECG Confirmed by KEITH WELSH, REMIGIO ([id number]), brands editor MCKINLEY PANIAGUA ([id number]) on 06/08/2021 1:55:06 PM Referred By: SHAWNA Confirmed By:REMIGIO PARKER MD
[2021-06-06] MEDS: 0.9% Normal Saline 1,000 ML 999 ML IV ×3 (21:11→21:51)
[2021-06-06 21:41] LABS: Troponin-I HS 77 pg/mL (3.0-78.0)
[2021-06-06 21:56] LABS: International Normalized Ratio 1.1; Partial Thromboplast Time 27.4 Seconds (24.1-36.2); Prothrombin Time (Protime)PT. 13.9 SECONDS (11.7-14.9)
--- NOTE | 2021-06-06 22:00 | RAD_ITS ---
INDICATION: sepsis EXAMINATION/TECHNIQUE: X-RAY - XR Chest 1 View COMPARISON: 03/27/2016. FINDINGS: The lungs are clear. The cardiomediastinal silhouette is unremarkable. No pleural effusion or pneumothorax. No acute osseous abnormalities. RAD/Chest 1 View (Portable) IMPRESSION: No acute radiographic abnormalities. Electronically Signed: Rudy Valle MD at 22:44 EST ,
--- NOTE | 2021-06-06 22:41 | EX.ED.DYSGE1 ---
HPI History of Present Illness Chief Complaint: Nausea/Vomiting Informant: patient and spouse/S.O. Onset/Context/Timing Onset: Today Current Severity: Mild Maximum Severity: Severe Associated Symptoms Associated Symptoms: Nausea and vomiting Narrative Narrative: Patient has a remote history of nephrectomy and urostomy for renal cancer. He also had a craniotomy in the past for an unrelated brain tumor. He has a known ventral hernia but has not had issues with it. He presents today for abdominal distention, nausea, vomiting, and no bowel movements. Denies fevers or any other associated symptoms. Nothing seems to make this better or worse. [facility] Medical History Bladder cancer Brain tumor Cancer of kidney Hypothyroid Home Medications cholecalciferol (vitamin D3) [Vitamin D3] 1,000 unit PO DAILY 06/08/14 [History Last Taken 10/10/15 1000 UNIT] multivitamin with folic acid [Thera] 1 tab PO DAILY 06/08/14 [History Last Taken 10/10/15 1 TABLET] escitalopram oxalate 20 mg PO DAILY 06/06/21 [History Last Taken Unknown] levetiracetam 1,000 mg PO BID 06/06/21 [History Last Taken Unknown] levothyroxine 125 mcg PO DAILY 06/06/21 [History Last Taken Unknown] Allergy/AdvReac Type Severity Reaction Status Date / Time doxycycline Allergy Rash Verified 06/06/21 19:29 ciprofloxacin [From Cipro] AdvReac Nausea/Vom/ Verified 06/06/21 19:29 Diarrhea Surgical History (Updated 06/06/21 @ 19:40 by Ilana Kohli) History of urostomy Social History Smoking Status: Never smoker ROS ROS ED Constitutional Constitutional ED: Denies chills or fever(s) Eyes Eyes: Denies change in vision ENT ENT ED: Denies ear pain Cardiovascular Cardiovascular: Denies chest pain Respiratory/Chest Respiratory/Chest: Denies dyspnea Gastrointestinal Gastrointestinal: Reports abdominal pain, nausea and vomiting; Denies constipation or diarrhea Genitourinary Genitourinary ED: Denies dysuria Musculoskeletal Musculoskeletal: Denies arthralgias or myalgias Integumentary Denies rash Neurologic Neurologic: Denies headache(s) Psychiatric Psychiatric: Denies depression Endocrine Endocrinology: Denies polyuria Allergic/Immunologic Allergic/Immunologic ED: Denies urticaria EXAM Physical Exam Const Vital Signs: 06/06/21 19:25 06/06/21 21:08 06/06/21 21:14 Temperature 95.2 F L Temperature Source Temporal Pulse Rate 133 H 88 Respiratory Rate 18 Blood Pressure 90/60 71/51 L 73/56 L Blood Pressure Mean 70 57 61 Pulse Ox 100 Oxygen Delivery Method Room Air Oxygen Flow Rate (L/min) 06/06/21 21:18 06/06/21 21:36 06/06/21 21:48 Temperature 98.2 F Temperature Source Oral Pulse Rate 18 L Respiratory Rate 18 Blood Pressure 80/60 L Blood Pressure Mean 66 Pulse Ox 98 93 87 Oxygen Delivery Method Room Air Room Air Room Air Oxygen Flow Rate (L/min) 06/06/21 21:52 06/06/21 22:26 06/06/21 22:48 Temperature 98.1 F Temperature Source Temporal Pulse Rate 68 75 80 Respiratory Rate 23 H 18 20 H Blood Pressure 88/60 L 99/69 103/66 Blood Pressure Mean 69 79 78 Pulse Ox 99 95 100 Oxygen Delivery Method Nasal Cannula Nasal Cannula Nasal Cannula Oxygen Flow Rate (L/min) 2 2 2 Positive well nourished and well developed General Appearance ED: well developed HEENT Negative for trauma or tenderness Eyes EOMs intact bilaterally Neck supple Resp normal respiratory effort and clear to auscultation bilaterally Cardio regular rate and regular rhythm GI GI Narrative: urostomy Inspection: abdominal distention Auscultation: hyperactive bowel sounds Palpation: Negative for tender or guarding Back/Spine no CVA tenderness Neuro oriented x3 Sensorium / Orientation: alert Psych mental status grossly normal Skin no rashes or lesions noted MDM MDM MDM Narrative Medical decision making narrative: I suspect the patient has a bowel obstruction. CT showed a bowel obstruction involving a ventral hernia and his urostomy site. I am unable to reduce this hernia. I tried an ice pack in Trendelenburg. Spoke with the patient. His surgeon is at [facility] and he is requesting transfer there. They put him on a wait list. Patient was hypotensive but responded to IV fluids. He was not tachycardic or febrile. He did have a white count of 15.8 but I cannot identify the source of his infection. Cultures are pending. Covid was negative. Chest x-ray was reviewed by the radiologist and myself and was unremarkable. Patient's repeat blood pressure was 99/69. He appears well. Mild abdominal pain. I spoke with our surgeon here, Dr. Johnson. This is a complicated case and a complicated hernia and we cannot provide care for him here. I recontacted [facility] to let them know, otherwise he will need to go to [place] or [place]. Patient is stable on reevaluation. Will continue fluid hydration. Awaiting transfer. 1. Small bowel obstruction 2. Ventral hernia 3. History of urostomy 4. Acute kidney injury 5. Lactic acidosis Critical care time 40 minutes. Lab Data Attestation: I reviewed the patient's lab results. Labs: Laboratory Results - last 24 hr 06/06/21 06/06/21 06/06/21 19:50 19:50 19:50 WBC 15.8 H RBC 5.94 Hgb 19.1 H* Hct 52.7 MCV 88.7 MCH 32.2 H MCHC 36.2 H RDW Std Deviation 40.7 RDW Coeff of Julienne 12.5 Plt Count 361 MPV 9.9 Immature Gran % (Auto) 0.300 Neut % (Auto) 84.3 H Lymph % (Auto) 7.3 L [place] % (Auto) 7.9 Eos % (Auto) 0.0 Baso % (Auto) 0.2 Absolute Neuts (auto) 13.4 H Absolute Lymphs (auto) 1.15 Nucleated RBC % 0 PT INR APTT Sodium 138 Potassium 4.0 Chloride 104 Carbon Dioxide 24.0 Anion Gap 10 BUN 48 H Creatinine 3.67 H Estim Creat Clear Calc 18.62 Est GFR (MDRD) Af Amer 22 L Est GFR (MDRD) Non-Af 18 L BUN/Creatinine Ratio 13.1 Glucose 165 H Lactic Acid Calcium 10.6 H Total Bilirubin 1.10 H AST 18 ALT 49 Alkaline Phosphatase 103 Troponin I High Sens 77 Total Protein 8.5 H Albumin 4.2 Globulin 4.3 H Albumin/Globulin Ratio 1.0 Lipase 39 L 06/06/21 06/06/21 21:26 21:30 WBC RBC Hgb Hct MCV MCH MCHC RDW Std Deviation RDW Coeff of Julienne Plt Count MPV Immature Gran % (Auto) Neut % (Auto) Lymph % (Auto) [place] % (Auto) Eos % (Auto) Baso % (Auto) Absolute Neuts (auto) Absolute Lymphs (auto) Nucleated RBC % PT 13.9 INR 1.1 APTT 27.4 Sodium Potassium Chloride Carbon Dioxide Anion Gap BUN Creatinine Estim Creat Clear Calc Est GFR (MDRD) Af Amer Est GFR (MDRD) Non-Af BUN/Creatinine Ratio Glucose Lactic Acid 2.7 H* Calcium Total Bilirubin AST ALT Alkaline Phosphatase Troponin I High Sens Total Protein Albumin Globulin Albumin/Globulin Ratio Lipase Radiography Diagnostic Testing: Clinical Impression(s) from Imaging Studies Abdomen/Pelvis CT 06/06/21 19:53 IMPRESSION: Findings concerning for small bowel obstruction with transition point at a periumbilical hernia. Additional smaller left periumbilical hernia is present as well as a left inguinal hernia containing fat and a small segment of sigmoid colon. Electronically Signed: Rudy Valle MD at 21:29 EST , Chest X-Ray 06/06/21 22:00 IMPRESSION: No acute radiographic abnormalities. Electronically Signed: Rudy Valle MD at 22:44 EST , Discharge Plan Triage Chief Complaint: Nausea/Vomiting ED Provider: Elías Araya Dx/Rx/DC Orders Prescriptions: No Action cholecalciferol (vitamin D3) [Vitamin D3] 1,000 UNIT tablet 1,000 unit PO DAILY RF: 0 multivitamin with folic acid [Thera] 1 TABLET tablet 1 tab PO DAILY RF: 0 levothyroxine 125 mcg tablet 125 mcg PO DAILY RF: 0 escitalopram oxalate 20 mg tablet 20 mg PO DAILY RF: 0 levetiracetam 1,000 mg tablet 1,000 mg PO BID RF: 0 Primary Care Provider: Tamir Ireland Chi
[2021-06-06 22:44] LABS: Lactic Acid 2.7 mmol/L (0.4-1.9)
--- NOTE | 2021-06-06 23:49 | ED.RN ---
SPOKE WITH PRIMO AT [facility] TRANSFER LINE. NURSE TO NURSE REPORT NOT NECESSARY SINCE PATIENT WILL BE GOING TO ED.
[2021-06-07 00:05] VITALS: BP 99/74; PULSE 81; RESP 20; O2SAT 97
[2021-06-07 00:31] VITALS: TEMP 37
[2021-06-07 01:03] VITALS: BP 123/88; PULSE 84; RESP 17; O2SAT 92
--- NOTE | 2021-06-07 01:04 | CCN.REFER ---
PATIENTS [facility] CALLED. NOTIFIED TRANSPORT IS HERE AND WILL BE TRANSFERRED TO [facility]
[2021-06-07 01:39] LABS: Reflex Lactate? Y
[2021-06-07 15:05] LABS: Pathologist Review Reviewed
== END 2021-06-07 01:07 | disposition short-term general hospital (02) ==
LOC: ED 20:19
PROVIDERS: Emergency Provider Emergency Medicine; PCP Family Medicine Geriatric Medicine; Visit Provider Emergency Medicine
DX: K56.609 Unspecified intestinal obstruction, unspecified as to partial versus complete obstruction (principal); N17.9 Acute kidney failure, unspecified; K43.6 Other and unspecified ventral hernia with obstruction, without gangrene; E87.2 Acidosis
CPT/HCPCS: 71045; 74176; 80053; 83605; 83690; 84484; 85025; 85610; 85730; 87040; 87426; 93005; 99285; J7030; A4216; J2405

== ENCOUNTER → 2021-09-17 | Outpatient (CLI) | payer MEDICARE, SELFPAY ==
[2021-09-17 17:35] LABS: Absolute Lymphocyte Count 1.69 X10^3/uL (0.83-4.51); Basophil# 0.06 X10^3/uL; Basophil% 0.9 % (0-1); Eosinophil# 0.24 X10^3/uL; Eosinophils% 3.7 % (0-5); Hematocrit 42.5 % (40-54); Hemoglobin 14.6 g/dL (13.0-16.5); Lymphocyte # 1.69 X10^3/ul (0.83-4.51); Lymphocyte % 25.8 % (19-41); Mean Corp Hgb Conc 34.4 g/dL (32-36); Mean Corpuscular Hgb 30.7 pg (27.0-32.0); Mean Corpuscular Volume 89.5 fL (80-94); Mean Platelet Vol. 9.3 fl (6.2-12.0); Monocyte# 0.55 X10^3/uL; Monocyte% 8.4 % (0-10); NRBC Flagged by Analyzer 0 % (0-5); Neutrophil # 4.02 X10^3/uL (2.7-7.7); Neutrophil % 61.2 % (47-70); Platelet Count 246 K/mm3 (150-450); RBC Distribution Width CV 12.6 % (11.6-14.6); RBC Distribution Width SD 41.1 fl (35.1-43.9); Red Blood Count 4.75 M/mm3 (4.6-6.2); White Blood Count 6.6 K/mm3 (4.4-11.0)
[2021-09-17 18:39] LABS: Anion Gap 4 (5-15); BUN 18 mg/dL (7-18); BUN/Creat Ratio 12.7 RATIO (10-20); Calcium,Total 9.3 mg/dL (8.5-10.1); Chloride 109 mmol/L (98-107); Creatinine, Serum 1.42 mg/dL (0.70-1.30); EST Glomerular Filtration Rate 54 mL/min (>60); Est Glom Filt Rate - Afr Amer 65 mL/min (>60); Glucose 89 mg/dL (74-106); Potassium 4.8 mmol/L (3.5-5.1); Sodium Level 142 mmol/L (136-145)
== END | disposition home or self-care (01) ==
LOC: LAB 17:20
PROVIDERS: PCP Family Medicine Geriatric Medicine; Referring Provider Family Medicine Geriatric Medicine; Visit Provider Family Medicine Geriatric Medicine
DX: R53.83 Other fatigue (principal); N39.0 Urinary tract infection, site not specified
CPT/HCPCS: 36415; 80048; 85025; 87077; 87086; 87088; 87186

== ENCOUNTER → 2021-12-13 | Outpatient (CLI) | payer MEDICARE, SELFPAY ==
[2021-12-13 11:22] LABS: Vitamin D,25 Hydroxy 29.6 ng/mL
[2021-12-13 11:24] LABS: ALB/GLOB Ratio 0.9 RATIO (0.9-2.4); AST(SGOT) 20 U/L (15-37); Alanine Aminotransfer ALT/SGPT 44 U/L (16-61); Albumin, Serum 3.3 g/dL (3.2-5.0); Alkaline Phosphatase 95 U/L (45-117); Anion Gap 3 (5-15); BUN 26 mg/dL (7-18); BUN/Creat Ratio 21.8 RATIO (10-20); Calcium,Total 8.8 mg/dL (8.5-10.1); Chloride 108 mmol/L (98-107); Cholesterol 168 mg/dL (200); Creatinine, Serum 1.19 mg/dL (0.70-1.30); EST Glomerular Filtration Rate 66 mL/min (>60); Est Glom Filt Rate - Afr Amer 80 mL/min (>60); Free T3 2.6 pg/mL (2.18-3.98); Globulin 3.5 g/dL (2.2-4.2); Glucose 82 mg/dL (74-106); High Density Lipoprotein 47 mg/dL; Potassium 4.8 mmol/L (3.5-5.1); Protein, Total 6.8 g/dL (6.4-8.2); Sodium Level 141 mmol/L (136-145); T4 Free Direct 1.48 ng/dL (0.76-1.46); Thyroid Stim Hormone (TSH) 0.22 uIU/mL (0.358-3.74); Triglycerides 104 mg/dL; Very Low Density Lipoprotein 21 mg/dL (5-40)
== END | disposition home or self-care (01) ==
LOC: LAB 09:09
PROVIDERS: PCP Family Medicine Geriatric Medicine; Visit Provider Internal Medicine Endocrinology, Diabetes & Metabolism
DX: E03.9 Hypothyroidism, unspecified (principal); D32.9 Benign neoplasm of meninges, unspecified; D49.7 Neoplasm of unspecified behavior of endocrine glands and other parts of nervous system
CPT/HCPCS: 36415; 80053; 80061; 82306; 84439; 84443; 84481

== ENCOUNTER → 2022-02-28 | Outpatient (CLI) | payer MEDICARE, SELFPAY ==
[2022-02-28 12:33] LABS: Absolute Lymphocyte Count 1.32 X10^3/uL (0.83-4.51); Absolute Neutrophil Count 3.3 X10^3/uL (2.0-7.7); Basophil# 0.06 X10^3/uL; Basophil% 1.1 % (0-1); Eosinophil# 0.19 X10^3/uL; Eosinophils% 3.5 % (0-5); Hematocrit 45.5 % (40-54); Hemoglobin 15.2 g/dL (13.0-16.5); Lymphocyte # 1.32 X10^3/ul (0.83-4.51); Lymphocyte % 24.6 % (19-41); Mean Corp Hgb Conc 33.4 g/dL (32-36); Mean Corpuscular Hgb 30.5 pg (27.0-32.0); Mean Corpuscular Volume 91.2 fL (80-94); Mean Platelet Vol. 10.1 fl (6.2-12.0); Monocyte# 0.48 X10^3/uL; Monocyte% 8.9 % (0-10); NRBC Flagged by Analyzer 0 % (0-5); Neutrophil # 3.31 X10^3/uL (2.7-7.7); Neutrophil % 61.7 % (47-70); Platelet Count 239 K/mm3 (150-450); RBC Distribution Width CV 12.8 % (11.6-14.6); RBC Distribution Width SD 42.1 fl (35.1-43.9); Red Blood Count 4.99 M/mm3 (4.6-6.2); White Blood Count 5.4 K/mm3 (4.4-11.0)
[2022-02-28 13:05] LABS: Vitamin D,25 Hydroxy 45.5 ng/mL
[2022-02-28 13:26] LABS: BUN 23 mg/dL (7-18); Creatinine, Serum 1.23 mg/dL (0.70-1.30); EST Glomerular Filtration Rate 63 mL/min (>60); Glucose 71 mg/dL (74-106)
[2022-02-28 13:27] LABS: ALB/GLOB Ratio 1.1 RATIO (0.9-2.4); AST(SGOT) 17 U/L (15-37); Alanine Aminotransfer ALT/SGPT 31 U/L (16-61); Albumin, Serum 3.7 g/dL (3.2-5.0); Alkaline Phosphatase 91 U/L (45-117); Anion Gap 7 (5-15); BUN/Creat Ratio 18.7 RATIO (10-20); Calcium,Total 9.2 mg/dL (8.5-10.1); Chloride 108 mmol/L (98-107); Est Glom Filt Rate - Afr Amer 77 mL/min (>60); Globulin 3.5 g/dL (2.2-4.2); PSA,Total - Annual Screen < 0.01 ng/mL (0.00-4.00); Potassium 3.9 mmol/L (3.5-5.1); Protein, Total 7.2 g/dL (6.4-8.2); Sodium Level 143 mmol/L (136-145); Thyroid Stim Hormone (TSH) 0.52 uIU/mL (0.358-3.74)
== END | disposition home or self-care (01) ==
LOC: POLAB3 08:58
PROVIDERS: PCP Family Medicine Geriatric Medicine; Visit Provider Family Medicine Geriatric Medicine
DX: E55.9 Vitamin D deficiency, unspecified (principal); R53.83 Other fatigue; Z12.5 Encounter for screening for malignant neoplasm of prostate
CPT/HCPCS: 36415; 80053; 82306; 84153; 84443; 85025; G0103

== ENCOUNTER 2022-03-25 06:15 | Emergency (ER) | payer MEDICARE, SELFPAY ==
[2022-03-25 06:16] VITALS: BP 156/79; PULSE 116; RESP 18; TEMP 35.9; O2SAT 93; BMI 32.8
--- NOTE | 2022-03-25 06:23 | CT_ITS ---
EXAM: CT Abdomen and Pelvis With Intravenous Contrast CLINICAL INDICATION: 61 years old, Male; abd pain, vomiting, hx sbo/hernias TECHNIQUE: Helically acquired images were obtained of the abdomen and pelvis with intravenous contrast. This CT exam was performed using one or more of the following dose reduction techniques: automated exposure control, adjustment of the mA and/or kV according to patient size, and/or use of iterative reconstruction technique. This report was created using [employer] report generation technology. CONTRAST: IV 100mL Isovue-300 RADIATION DOSE: CTDIvol = 17.71 mGy, DLP = 1180.96 mGy-cm COMPARISON: CT Abdomen Pelvis dated 06/06/2021 FINDINGS: Lower thorax: Unremarkable. Lung bases are clear. No cardiomegaly. No significant pericardial effusion. ABDOMEN: Liver: Low attenuation foci in the liver consistent with hepatic cysts. No follow-up is necessary. Gallbladder and bile ducts: Small stones in the gallbladder. Gallbladder otherwise normal. No gallbladder distention or wall edema. No intra- or extrahepatic biliary ductal dilation. Pancreas: Unremarkable. No focal cystic or solid mass. Spleen: Unremarkable. Normal size without focal cystic or solid mass. Adrenals: Unremarkable. No nodules. Kidneys and ureters: Hydronephrosis right kidney. No obstructing stone is identified. Left nephrectomy. Simple right renal cyst. No follow-up of this simple cyst is necessary. Stomach and bowel: Ventral pelvic wall parastomal hernia on the right containing a nonobstructed segment of distal small bowel. The small bowel proximal to this obstruction is dilated. Inguinal hernias containing fat. The left-sided hernia contains a short segment of nonobstructed sigmoid colon. There are 2 ventral abdominal wall hernias on the left which contain short segments of small bowel with no transition point identified at these locations. Postoperative changes in her colon anastomosis. No focal inflammatory change. PELVIS: Appendix: No evidence of acute appendicitis. Bladder: Cystectomy with ileal conduit to a right lower quadrant ileostomy. Reproductive: Unremarkable as visualized. No mass. ABDOMEN and PELVIS: Intraperitoneal space: Unremarkable. No ascites or other fluid collection. No free air. Bones/joints: Unremarkable. No suspicious lytic or blastic abnormality. Soft tissues: See above. Vasculature: Unremarkable. Abdominal aorta is non-dilated. Lymph nodes: Unremarkable. No enlarged lymph nodes. CT/Abdomen/Pelvis W IV Cont ONLY IMPRESSION: 1. Ventral pelvic wall parastomal hernia on the right containing a nonobstructed segment of distal small bowel. The small bowel proximal to this obstruction is dilated. Findings are consistent with a mechanical small bowel obstruction due to the hernia. 2. Hydronephrosis right kidney. No obstructing stone is identified. Findings are likely related to the presence of an ileal conduit. 3. Inguinal hernias containing fat. The left-sided hernia contains a short segment of nonobstructed sigmoid colon. 4. There are 2 ventral abdominal wall hernias on the left which contain short segments of small bowel with no transition point identified at these locations. 5. Small stones in the gallbladder. Gallbladder otherwise normal. 6. Cystectomy with ileal conduit to a right lower quadrant ileostomy. Electronically Signed: Lorenzo Medina MD at 7:40 EST ,
--- NOTE | 2022-03-25 06:25 | ED.VIS.GI ---
HPI <Dr. Shaquille Taveras MD - Last Filed: 03/25/22 06:32> HPI - GI History of Present Illness Chief Complaint: Nausea/Vomiting/Diarrhea Informant: patient and spouse/S.O. Abdominal Pain/Flank Pain Onset: Today (Several hours) Context: Sudden Onset Timing: Continuous Quality: Aching Location: Diffuse (Mostly across middle) Current Severity: Moderate Maximum Severity: Moderate Worsened by: Nothing Relieved by: Nothing Nausea/Vomiting/Emesis GI Symptom: Positive for Nausea and Vomiting Onset: Today Quality: Positive for Coffee ground (Possibly; looks dark but no blood) Severity: Severe (Cannot keep anything down. Numerous episodes.) Diarrhea/Melena/Hematochezia GI Symptom: Negative for Diarrhea, Melena or Hematochezia Associated Symptoms Associated Symptoms: Negative for Dysuria, Frequency or Hematuria Narrative Narrative: Patient presenting with periumbilical abdominal pain and vomiting overnight, presenting around 6 AM. Has not been able to keep down any fluids overnight. Patient has a history of kidney cancer requiring a right nephrectomy in addition to bladder cancer, he has a urostomy. Unknown if he had 2 primaries, provides most of the history and at times will not allow the patient to speak the majority of time although the patient is able and does answer questions appropriately. She also states he had a tumor removed from his brain followed by radiation. All of this was remotely and he has not had any chemotherapy in the past year. He has had several hernias, at least one resulted in a bowel obstruction from what the is describing. He had surgery for that at [facility], no abdominal surgeries in the past year. He states he had some diarrhea a couple days ago, he has had little in the way of bowel movements since. His emesis looked black this morning, he has what appears to be bilious stains on his face from emesis, he denies seeing any hematemesis and he is on no anticoagulants or antiplatelets. He has seizures since his brain surgery, he has had no seizures recently and is compliant with his seizure medication and other medications. [facility] <Dr. Shaquille Taveras MD - Last Filed: 03/25/22 06:32> [facility] Medical History Bladder cancer Brain tumor Cancer of kidney Hypothyroid Seizure disorder Home Medications cholecalciferol (vitamin D3) 25 mcg (1,000 unit) tablet (Vitamin D3) 1,000 unit PO DAILY 06/08/14 [History Last Taken 10/10/15 1000 UNIT] multivitamin with folic acid 400 mcg tablet (Thera) 1 tab PO DAILY 06/08/14 [History Last Taken 10/10/15 1 TABLET] escitalopram oxalate 20 mg tablet 20 mg PO DAILY 06/06/21 [History Last Taken Unknown] levetiracetam 1,000 mg tablet 1,000 mg PO BID 06/06/21 [History Last Taken Unknown] levothyroxine 125 mcg tablet 125 mcg PO DAILY 06/06/21 [History Last Taken Unknown] quetiapine 25 mg tablet (Seroquel) mg PO DAILY 03/25/22 [History Last Taken Unknown] Allergy/AdvReac Type Severity Reaction Status Date / Time doxycycline Allergy Rash Verified 03/25/22 06:24 ciprofloxacin [From Cipro] AdvReac Nausea/Vom/ Verified 03/25/22 06:24 Diarrhea Surgical History History of urostomy Social History Smoking Status: Never smoker ROS <Dr. Shaquille Taveras MD - Last Filed: 03/25/22 06:32> ROS ED Constitutional Constitutional ED: Reports other Details: possibly subjective fever earlier; did not check ; Denies chills Eyes Eyes: Denies change in vision or diplopia ENT ENT ED: Denies rhinorrhea or sore throat Cardiovascular Cardiovascular: Denies chest pain or palpitations Respiratory/Chest Respiratory/Chest: Denies cough or dyspnea Gastrointestinal Gastrointestinal: Reports abdominal pain, nausea and vomiting; Denies diarrhea or melena Genitourinary Genitourinary ED: Reports other Details: good urostomy output, nml-appearing, no hematuria ; Denies dysuria or hematuria Musculoskeletal Musculoskeletal: Denies back pain or neck pain Integumentary Denies abscess or rash Neurologic Neurologic: Denies headache(s), paresthesias or weakness Psychiatric Psychiatric: Denies anxiety or suicidal thoughts EXAM <Dr. Shaquille Taveras MD - Last Filed: 03/25/22 06:32> Physical Exam Const Vital Signs: 03/25/22 06:16 03/25/22 07:49 Temperature 96.7 F L Temperature Source Temporal Pulse Rate 116 H 86 Respiratory Rate 18 18 Blood Pressure 156/79 H 111/68 Blood Pressure Mean 104 82 Pulse Ox 93 93 Oxygen Delivery Method Room Air Room Air Positive well nourished and well developed General Appearance ED: well developed and NAD HEENT Reports moist mucous membranes normocephalic and atraumatic Eyes PERRL and EOMs intact bilaterally Neck full ROM and supple Resp normal respiratory effort and clear to auscultation bilaterally Cardio regular rate, regular rhythm and no murmurs GI GI Narrative: Distended abdomen. Tender periumbilical and left abdomen. No guarding or rebound tenderness. Nontender around right lower quadrant urostomy, which is intact with nonbloody transparent yellow urine in the bag. Auscultation: hypoactive bowel sounds Palpation: soft Back/Spine no CVA tenderness General Back: other FROM Extremity normal to inspection General Extremety ED: Negative for edema, pulses abnormal or tenderness General Extremity: Negative for edema or pulses abnormal Neuro oriented x3, CN's II-XII intact bilaterally and no sensory deficits noted Sensorium / Orientation: awake and alert Motor Exam: strength 5/5 throughout Psych mental status grossly normal and thought process normal Skin no rashes or lesions noted and no wounds <Dr. Joshua Olguin DO - Last Filed: 03/25/22 09:17> Physical Exam Const Vital Signs: 03/25/22 06:16 03/25/22 07:49 Temperature 96.7 F L Temperature Source Temporal Pulse Rate 116 H 86 Respiratory Rate 18 18 Blood Pressure 156/79 H 111/68 Blood Pressure Mean 104 82 Pulse Ox 93 93 Oxygen Delivery Method Room Air Room Air MDM <Dr. Shaquille Taveras MD - Last Filed: 03/25/22 06:32> [facility] Narrative Medical decision making narrative: Given the patient's history and exam, my concern is for an acute small bowel obstruction. Patient seen just prior to shift change, ordered IV fluids, analgesics and antiemetics, I chose Reglan so as to less likely decrease seizure threshold, in addition to work-up including labs and CT with IV contrast. Checked out to oncoming emergency physician at morning shift change. Lab Data Labs: Laboratory Results - last 24 hr 03/25/22 03/25/22 03/25/22 06:23 06:23 07:40 WBC 15.1 H RBC 5.70 Hgb 17.6 H Hct 50.6 MCV 88.8 MCH 30.9 MCHC 34.8 RDW Std Deviation 41.1 RDW Coeff of Julienne 12.7 Plt Count 317 MPV 9.6 Immature Gran % (Auto) 0.300 Neut % (Auto) 85.7 H Lymph % (Auto) 8.2 L Owsley % (Auto) 5.6 Eos % (Auto) 0.0 Baso % (Auto) 0.2 Absolute Neuts (auto) 13.0 H Absolute Lymphs (auto) 1.24 Nucleated RBC % 0 Sodium 140 Potassium 3.9 Chloride 104 Carbon Dioxide 26.0 Anion Gap 10 BUN 29 H Creatinine 1.84 H Estim Creat Clear Calc 38.04 Est GFR (MDRD) Af Amer 48 L Est GFR (MDRD) Non-Af 40 L BUN/Creatinine Ratio 15.8 Glucose 183 H Lactic Acid 4.3 H* Calcium 9.7 Total Bilirubin 1.00 AST 18 ALT 31 Alkaline Phosphatase 113 Total Protein 8.2 Albumin 4.4 Globulin 3.8 Albumin/Globulin Ratio 1.2 Radiography Diagnostic Testing: Clinical Impression(s) from Imaging Studies Abdomen/Pelvis CT 03/25/22 06:23 IMPRESSION: 1. Ventral pelvic wall parastomal hernia on the right containing a nonobstructed segment of distal small bowel. The small bowel proximal to this obstruction is dilated. Findings are consistent with a mechanical small bowel obstruction due to the hernia. 2. Hydronephrosis right kidney. No obstructing stone is identified. Findings are likely related to the presence of an ileal conduit. 3. Inguinal hernias containing fat. The left-sided hernia contains a short segment of nonobstructed sigmoid colon. 4. There are 2 ventral abdominal wall hernias on the left which contain short segments of small bowel with no transition point identified at these locations. 5. Small stones in the gallbladder. Gallbladder otherwise normal. 6. Cystectomy with ileal conduit to a right lower quadrant ileostomy. Electronically Signed: Lorenzo Medina MD at 7:40 EST , KUB X-Ray 03/25/22 08:50 IMPRESSION: The tip of a nasogastric tube is in the region of the gastroesophageal junction. Right-sided hydronephrosis down to the ileostomy. Electronically Signed: Dav Melendez MD at 9:03 EST , <Dr. Joshua Olguin, DO - Last Filed: 03/25/22 09:17> [facility] Lab Data Labs: Laboratory Results - last 24 hr 03/25/22 03/25/22 03/25/22 06:23 06:23 07:40 WBC 15.1 H RBC 5.70 Hgb 17.6 H Hct 50.6 MCV 88.8 MCH 30.9 MCHC 34.8 RDW Std Deviation 41.1 RDW Coeff of Julienne 12.7 Plt Count 317 MPV 9.6 Immature Gran % (Auto) 0.300 Neut % (Auto) 85.7 H Lymph % (Auto) 8.2 L Owsley % (Auto) 5.6 Eos % (Auto) 0.0 Baso % (Auto) 0.2 Absolute Neuts (auto) 13.0 H Absolute Lymphs (auto) 1.24 Nucleated RBC % 0 Sodium 140 Potassium 3.9 Chloride 104 Carbon Dioxide 26.0 Anion Gap 10 BUN 29 H Creatinine 1.84 H Estim Creat Clear Calc 38.04 Est GFR (MDRD) Af Amer 48 L Est GFR (MDRD) Non-Af 40 L BUN/Creatinine Ratio 15.8 Glucose 183 H Lactic Acid 4.3 H* Calcium 9.7 Total Bilirubin 1.00 AST 18 ALT 31 Alkaline Phosphatase 113 Total Protein 8.2 Albumin 4.4 Globulin 3.8 Albumin/Globulin Ratio 1.2 Radiography Diagnostic Testing: Clinical Impression(s) from Imaging Studies Abdomen/Pelvis CT 03/25/22 06:23 IMPRESSION: 1. Ventral pelvic wall parastomal hernia on the right containing a nonobstructed segment of distal small bowel. The small bowel proximal to this obstruction is dilated. Findings are consistent with a mechanical small bowel obstruction due to the hernia. 2. Hydronephrosis right kidney. No obstructing stone is identified. Findings are likely related to the presence of an ileal conduit. 3. Inguinal hernias containing fat. The left-sided hernia contains a short segment of nonobstructed sigmoid colon. 4. There are 2 ventral abdominal wall hernias on the left which contain short segments of small bowel with no transition point identified at these locations. 5. Small stones in the gallbladder. Gallbladder otherwise normal. 6. Cystectomy with ileal conduit to a right lower quadrant ileostomy. Electronically Signed: Lorenzo Medina MD at 7:40 EST , KUB X-Ray 03/25/22 08:50 IMPRESSION: The tip of a nasogastric tube is in the region of the gastroesophageal junction. Right-sided hydronephrosis down to the ileostomy. Electronically Signed: Dav Melendez MD at 9:03 EST , Treatment and Re-Evaluation Narrative: Patient was turned over to me. CT scan of the abdomen and pelvis shows a parastomal hernia on the right containing nonobstructed segment of distal small bowel but there is a small bowel obstruction proximal to this. Findings are consistent with a mechanical small bowel obstruction due to the hernia. There are 2 ventral hernias on the left but there is no obstruction of these. There are small stones in the gallbladder. This was interpreted by the radiologist and reviewed by myself. CBC shows a leukocytosis of 15.1. Comprehensive metabolic profile shows a BUN of 29 and creatinine of 1.84. There is a slightly increased from previous results. Serum lactate was elevated at 4.3. Patient was given IV fluids. Findings were discussed with the patient. They requested to be transferred to [facility]. Case was discussed with the transfer line there. Patient was accepted to the service of Dr. Odom. Patient will be transferred to the emergency department there. Nasogastric tube was placed. KUB x-ray was obtained. There is 1 view. On my interpretation, the tip of the nasogastric tube is at the region of the gastroesophageal junction. Radiologist also interpreted the x-ray and agrees. Case was discussed with the emergency department physician at [facility]. Patient will be transferred to the emergency department there. Patient and family understood and were agreeable with the plan. All questions were answered. Discharge Plan Triage Chief Complaint: Nausea/Vomiting/Diarrhea ED Provider: Shaquille Taveras Dx/Rx/DC Orders Clinical Impression: Small bowel obstruction, Ventral hernia with bowel obstruction, Acidosis, lactic Prescriptions: No Action cholecalciferol (vitamin D3) [Vitamin D3] 1,000 UNIT tablet 1,000 unit PO DAILY Label Comments: vitamin multivitamin with folic acid [Thera] 1 TABLET tablet 1 tab PO DAILY Label Comments: vitamin levothyroxine 125 mcg tablet 125 mcg PO DAILY Label Comments: Take 1 Tablet orally once per day for 90 days escitalopram oxalate 20 mg tablet 20 mg PO DAILY levetiracetam 1,000 mg tablet 1,000 mg PO BID Label Comments: Take 1 tablet by mouth twice daily. quetiapine [Seroquel] 25 mg Tablet PO DAILY Primary Care Provider: Tamir Ireland Chi Referrals: Tamir Ireland Chi, MD [Primary Care Provider] - Disposition Disposition: Acute Care Hospital Discharge Location: [facility]
[2022-03-25] MEDS: Morphine 4 MG/ML Syringe IV (06:31)
[2022-03-25] MEDS: Metoclopramide 10 MG/2 ML Vial 5 MG IV (06:31)
[2022-03-25] MEDS: 0.9% Normal Saline 1,000 ML 1000 ML IV (06:31)
[2022-03-25 06:33] LABS: Absolute Lymphocyte Count 1.24 X10^3/uL (0.83-4.51); Basophil# 0.03 X10^3/uL; Basophil% 0.2 % (0-1); Hematocrit 50.6 % (40-54); Hemoglobin 17.6 g/dL (13.0-16.5); Lymphocyte # 1.24 X10^3/ul (0.83-4.51); Lymphocyte % 8.2 % (19-41); Mean Corp Hgb Conc 34.8 g/dL (32-36); Mean Corpuscular Hgb 30.9 pg (27.0-32.0); Mean Corpuscular Volume 88.8 fL (80-94); Mean Platelet Vol. 9.6 fl (6.2-12.0); Monocyte# 0.85 X10^3/uL; Monocyte% 5.6 % (0-10); NRBC Flagged by Analyzer 0 % (0-5); Neutrophil # 12.95 X10^3/uL (2.7-7.7); Neutrophil % 85.7 % (47-70); Platelet Count 317 K/mm3 (150-450); RBC Distribution Width CV 12.7 % (11.6-14.6); RBC Distribution Width SD 41.1 fl (35.1-43.9); White Blood Count 15.1 K/mm3 (4.4-11.0)
[2022-03-25 06:51] LABS: ALB/GLOB Ratio 1.2 RATIO (0.9-2.4); AST(SGOT) 18 U/L (15-37); Alanine Aminotransfer ALT/SGPT 31 U/L (16-61); Albumin, Serum 4.4 g/dL (3.2-5.0); Alkaline Phosphatase 113 U/L (45-117); Anion Gap 10 (5-15); BUN 29 mg/dL (7-18); BUN/Creat Ratio 15.8 RATIO (10-20); Calcium,Total 9.7 mg/dL (8.5-10.1); Chloride 104 mmol/L (98-107); Creatinine, Serum 1.84 mg/dL (0.70-1.30); EST Glomerular Filtration Rate 40 mL/min (>60); Est Glom Filt Rate - Afr Amer 48 mL/min (>60); Estimated Creatinine Clearance 38.04 ml/min; Globulin 3.8 g/dL (2.2-4.2); Glucose 183 mg/dL (74-106); Potassium 3.9 mmol/L (3.5-5.1); Protein, Total 8.2 g/dL (6.4-8.2); Sodium Level 140 mmol/L (136-145)
--- NOTE | 2022-03-25 07:04 | NURSING ---
removed old urostomy appliance and applied new, pt tolerated well
[2022-03-25 07:49] VITALS: BP 111/68; PULSE 86; RESP 18; O2SAT 93
[2022-03-25 08:19] LABS: Lactic Acid 4.3 mmol/L (0.4-1.9)
--- NOTE | 2022-03-25 08:19 | ED.RN ---
LAB CALLED [facility].3
--- NOTE | 2022-03-25 08:30 | NURSING ---
CALLED [facility], TALKED TO VIKTORIA, ABOUT TRANSFER
[2022-03-25] MEDS: Oxymetazoline 0.05% 1 SPRAY SPRAY.BTL 2 SPRAY NASAL (08:50)
--- NOTE | 2022-03-25 08:50 | RAD_ITS ---
STUDY: X-RAY - ABDOMEN/PELVIS REASON FOR EXAM: Male, 61 years old. NG Insertion TECHNIQUE: Single AP view of the abdomen / pelvis. COMPARISON: None. FINDINGS: Elevation of the right hemidiaphragm. Patchy infiltrate in the right lower lobe. The tip of the nasogastric tube is at the gastroesophageal junction. Right hydronephrosis and hydroureter. Findings suggestive of an ileostomy in the right lower quadrant. RAD/Abdomen Single View (Portable) IMPRESSION: The tip of a nasogastric tube is in the region of the gastroesophageal junction. Right-sided hydronephrosis down to the ileostomy. Electronically Signed: Dav Melendez MD at 9:03 EST ,
[2022-03-25 08:55] VITALS: BP 122/77; PULSE 100; RESP 18; O2SAT 92
--- NOTE | 2022-03-25 09:07 | NURSING ---
CALLED [facility], ETA IS 20 MIN
--- NOTE | 2022-03-25 09:35 | RAD_ITS ---
STUDY: X-RAY - ABDOMEN/PELVIS REASON FOR EXAM: Male, 61 years old. Repeat for ng placement, moved tube down. TECHNIQUE: Single AP view of the abdomen / pelvis. COMPARISON: Comparison is made with prior chest radiograph and earlier today. FINDINGS: The tip of the nasogastric tube is in the distal portion of the stomach. RAD/Abdomen Single View IMPRESSION: The tip of the nasogastric tube is in the distal portion of the stomach. Electronically Signed: Dav Melendez MD at 10:06 EST ,
[2022-03-25 09:48] VITALS: BP 122/77; PULSE 100; RESP 18; TEMP 36.1; O2SAT 93
[2022-03-25 11:45] LABS: Reflex Lactate? Y
== END 2022-03-25 09:52 | disposition short-term general hospital (02) ==
PROVIDERS: Emergency Medicine; Emergency Provider Emergency Medicine; PCP Family Medicine Geriatric Medicine; Visit Provider Emergency Medicine
DX: K56.609 Unspecified intestinal obstruction, unspecified as to partial versus complete obstruction (principal); K43.6 Other and unspecified ventral hernia with obstruction, without gangrene; E87.20 Acidosis, unspecified; E03.9 Hypothyroidism, unspecified; Z79.899 Other long term (current) drug therapy
CPT/HCPCS: 74018; 74177; 80053; 83605; 85025; 96361; 96374; 96375; 99285; J7030; Q9967; A4216

== ENCOUNTER → 2022-05-03 | Outpatient (CLI) | payer MEDICARE, SELFPAY ==
[2022-05-03 10:03] LABS: ALB/GLOB Ratio 1.1 RATIO (0.9-2.4); AST(SGOT) 16 U/L (15-37); Alanine Aminotransfer ALT/SGPT 32 U/L (16-61); Albumin, Serum 3.9 g/dL (3.2-5.0); Alkaline Phosphatase 91 U/L (45-117); Anion Gap 5 (5-15); BUN 22 mg/dL (7-18); BUN/Creat Ratio 17.2 RATIO (10-20); Chloride 104 mmol/L (98-107); Creatinine, Serum 1.28 mg/dL (0.70-1.30); EST Glomerular Filtration Rate 61 mL/min (>60); Est Glom Filt Rate - Afr Amer 73 mL/min (>60); Follicle Stimulating Hormone 2.2 mIU/mL; Free T3 2.3 pg/mL (2.18-3.98); Globulin 3.4 g/dL (2.2-4.2); Glucose 90 mg/dL (74-106); Luteinizing Hormone 2.2 mIU/mL; Potassium 4.4 mmol/L (3.5-5.1); Prolactin 8.9 ng/mL; Protein, Total 7.3 g/dL (6.4-8.2); Sodium Level 140 mmol/L (136-145); T4 Free Direct 1.29 ng/dL (0.76-1.46); Thyroid Stim Hormone (TSH) 2.21 uIU/mL (0.358-3.74)
== END | disposition home or self-care (01) ==
PROVIDERS: PCP Family Medicine Geriatric Medicine; Referring Provider Internal Medicine Endocrinology, Diabetes & Metabolism; Visit Provider Internal Medicine Endocrinology, Diabetes & Metabolism
DX: Z90.49 Acquired absence of other specified parts of digestive tract (principal); D32.9 Benign neoplasm of meninges, unspecified; E03.9 Hypothyroidism, unspecified; D49.7 Neoplasm of unspecified behavior of endocrine glands and other parts of nervous system; E55.9 Vitamin D deficiency, unspecified
CPT/HCPCS: 36415; 80053; 82533; 83001; 83002; 84146; 84439; 84443; 84481

== ENCOUNTER → 2022-06-06 | Outpatient (CLI) | payer MEDICARE, SELFPAY ==
[2022-06-06 07:58] VITALS: BP 99/53; PULSE 64; RESP 16; TEMP 35.6; O2SAT 96; BMI 33.9
[2022-06-06] MEDS: Cosyntropin 0.25 MG Vial IM (08:06)
== END | disposition home or self-care (01) ==
LOC: MEDOUTP 07:54
PROVIDERS: PCP Family Medicine Geriatric Medicine; Referring Provider Internal Medicine Endocrinology, Diabetes & Metabolism; Visit Provider Internal Medicine Endocrinology, Diabetes & Metabolism
DX: E03.9 Hypothyroidism, unspecified (principal); D49.7 Neoplasm of unspecified behavior of endocrine glands and other parts of nervous system
CPT/HCPCS: 36415; 82533; 96372; J0834

== ENCOUNTER 2022-08-07 07:14 | Outpatient (CLI) | payer MEDICARE, SELFPAY ==
[2022-08-07 08:09] LABS: AST(SGOT) 16 U/L (15-37); Alanine Aminotransfer ALT/SGPT 25 U/L (16-61); Albumin, Serum 3.6 g/dL (3.2-5.0); Alkaline Phosphatase 105 U/L (45-117); Anion Gap 0 (5-15); BUN 22 mg/dL (7-18); BUN/Creat Ratio 17.2 RATIO (10-20); Calcium,Total 9.1 mg/dL (8.5-10.1); Chloride 109 mmol/L (98-107); Cholesterol 171 mg/dL (200); Creatinine, Serum 1.28 mg/dL (0.70-1.30); EST Glomerular Filtration Rate 61 mL/min (>60); Est Glom Filt Rate - Afr Amer 73 mL/min (>60); Globulin 3.7 g/dL (2.2-4.2); Glucose 91 mg/dL (74-106); High Density Lipoprotein 53 mg/dL; Potassium 4.2 mmol/L (3.5-5.1); Protein, Total 7.3 g/dL (6.4-8.2); Sodium Level 138 mmol/L (136-145); T4 Free Direct 1.26 ng/dL (0.76-1.46); Triglycerides 101 mg/dL; Very Low Density Lipoprotein 20 mg/dL (5-40)
== END 2022-08-07 23:59 | disposition home or self-care (01) ==
LOC: LAB 07:16
PROVIDERS: PCP Family Medicine Geriatric Medicine; Referring Provider Internal Medicine Endocrinology, Diabetes & Metabolism; Visit Provider Internal Medicine Endocrinology, Diabetes & Metabolism
DX: E03.9 Hypothyroidism, unspecified (principal); D32.9 Benign neoplasm of meninges, unspecified; D49.7 Neoplasm of unspecified behavior of endocrine glands and other parts of nervous system; E55.9 Vitamin D deficiency, unspecified; Z90.49 Acquired absence of other specified parts of digestive tract; Z13.1 Encounter for screening for diabetes mellitus; E78.1 Pure hyperglyceridemia
CPT/HCPCS: 36415; 80053; 80061; 83036; 84439; 84443; 84481

== ENCOUNTER → 2022-10-30 | Outpatient (CLI) | payer MEDICARE, SELFPAY ==
[2022-10-30 09:33] LABS: Hemoglobin A1c 5.3 % (3.8-5.6)
[2022-10-30 10:13] LABS: AST(SGOT) 16 U/L (15-37); Alanine Aminotransfer ALT/SGPT 25 U/L (16-61); Albumin, Serum 3.4 g/dL (3.2-5.0); Alkaline Phosphatase 99 U/L (45-117); Anion Gap 6 (5-15); BUN 20 mg/dL (7-18); Calcium,Total 8.6 mg/dL (8.5-10.1); Chloride 106 mmol/L (98-107); Cholesterol 148 mg/dL (200); Creatinine, Serum 1.25 mg/dL (0.70-1.30); EST Glomerular Filtration Rate 62 mL/min (>60); Est Glom Filt Rate - Afr Amer 75 mL/min (>60); Free T3 2.2 pg/mL (2.18-3.98); Globulin 3.4 g/dL (2.2-4.2); Glucose 87 mg/dL (74-106); High Density Lipoprotein 44 mg/dL; Potassium 4.4 mmol/L (3.5-5.1); Protein, Total 6.8 g/dL (6.4-8.2); Sodium Level 139 mmol/L (136-145); Thyroid Stim Hormone (TSH) 1.04 uIU/mL (0.358-3.74); Triglycerides 102 mg/dL; Very Low Density Lipoprotein 20 mg/dL (5-40)
== END | disposition home or self-care (01) ==
LOC: LAB 07:55
PROVIDERS: PCP Family Medicine; Referring Provider Internal Medicine Endocrinology, Diabetes & Metabolism; Visit Provider Internal Medicine Endocrinology, Diabetes & Metabolism
DX: E03.9 Hypothyroidism, unspecified (principal); D32.9 Benign neoplasm of meninges, unspecified; D49.7 Neoplasm of unspecified behavior of endocrine glands and other parts of nervous system; E55.9 Vitamin D deficiency, unspecified; Z90.49 Acquired absence of other specified parts of digestive tract
CPT/HCPCS: 36415; 80053; 80061; 83036; 84439; 84443; 84481

== ENCOUNTER 2023-03-04 10:00 | Outpatient (RCR) | payer MEDICARE, SELFPAY ==
--- NOTE | 2023-02-03 09:01 | HP.PTEVAL ---
Patient's Visit Information Visit Information Visit Information: MAI GARCIA is a 62 year old M referred to Physical Therapy by RUBIA VASQUES with a diagnosis of Frontal Anaplastic Astrocytoma. Date of Evaluation: 02/03/23 Physical Therapist: Elana Coulter DPT Visit Plan Frequency: 2-3x /Week Duration: 4 Weeks Plan: Vestibular Evaluation- Proprioception- LE and Core Strength/Stabilization with Focus on HEP in gym *Possible establishment of vestibular goals PRN HEP Given IE: Standing HR/TR, marching, hip abd/extn, sit to stands- encouraged more movement at home Subjective Subjective: Patient reports that he feels that his strength and balance have been a little bit off. He feels that he is spinning a little bit too. This has been going on for a couple of months and is slowly getting worse. He goes to the [employer] [facility] and walks the dog daily but has not been going due to being nervous of falling and sleeping later. He has had a few falls- last one was 2-3 weeks ago- tripped over pillows on the floor. Had a hard time getting back up. When he describes his dizziness he feels like he is making circles. He does not use a cane or walker. He feels that he could go in and walk around [facility] and would not need to use a cart. His feels that he shuffles his feet and that is what makes him lose his balance. He has decreased stamina and takes a few naps a day. He is sitting for most of the day. His goals are to be able to be more active and take the dogs for a walk- smaller dogs. No pain that limits him. 2 stairs to get in/out of the kitchen from the garage with handrails so he is able to navigate. He is fully I with ADLs of dressing and bathing. He does drive. Work: disable. PMHx/Meds: No changes since Mar 2022 with the exception of increase of Kepra. Did have a seizure about a month ago- call immediately if he has a seizure-FOCAL. Objective Objective: Posture: forward head, rounded shoulders, increased kyphosis- can correct with verbal cues but does not maintain Gait: wider base of support- no AD. HR/TR: able with UE A Stairs: asc/desc 8 recip with 2 HR- mild dec control with descent ROM: WFL in all planes Flex: HS: moderate, Gastroc: moderate Strength: Core: fair minus, Hip: 4-/5, Knee: 4+/5, Ankle: 4+/5 Sensation: WNL to gross touch bilateral Balance/Special Test Scores Functional Gait Assessment Score: 22 % Disability: 26.6700 CATSIB Score (Max score 120 seconds): 115 Lower Extremity Functional Score: 29 30 Second Chair Rise Test Seconds: 15 Goals Goal 1:: Patient will report participation in home exercise program activities a minimum of 5 days per week, as adjunct to skilled physical therapy intervention in preparation for independent home management upon discharge. Goal Time Frame: 4-6 Weeks Goal 2:: Patient will report an increase of 9 points on the LEFS to show minimal clinical significant difference on patients functional outcome measure. Goal Time Frame: 4-6 Weeks Goal 3:: Patient will perform 17 sit to stands in 30 sec to be within norms for his age group to ease functional ADL's. Goal Time Frame: 4-6 Weeks Rehabilitation Potential Physical Therapy Diagnosis: Patient presents with hypomobility- he has decreased LE and core strength/stabilization, flex, proprioception and muscular endurance leading to decreased balance and participation in ADL's. Rehabilitation Potential: Fair Anticipated Interventions Patient/Client Instruction: Educate patient on: Benefits of Fitness Program Therapeutic Exercise to Include: Strength training, Endurance training, Balance training, Coordination, Agility training, Body mechanics, Postural training, Flexibilty training, Gait and locomotor training, Neuromotor development, Dynamic Lumbar Stabilization and Scapular Strength/Stabilization For the Purpose of:: To improve muscle performance and motor function Functional Training to Include: Gait training Text: Thank you for the opportunity to evaluate your patient. For Medicare and Medicare HMO plans, please review the plan of care and approve it. It will need to be FAXED BACK to us at [phone] for Medicare purposes. For Medicare only, by signing this I certify the plan of care. Please let me know if there are questions or concerns regarding this plan of care. Physician Signature: Date:
--- NOTE | 2023-03-04 10:43 | HP.PTDCSUM ---
Discharge Summary D/C summary: It has been my pleasure to treat MAI GARCIA referred by RUBIA VASQUES, with the diagnosis of Frontal Anaplastic Astrocytoma for a total of 8 visit(s). Discharge Date: 03/04/23 Please see the following information for a summary of their discharge status. Subjective Subjective: Making progress. things are easier like going up and down stairs. Feels safer and hangs on less. used to do one step at a time. HEP: not doing them as he does not think about it. Activities at home are going OK. Spends day watching Tv and cleaning house and laundry and can do those. No falls and balance is OK. 60% better overall and needs time to continue to get better with speed of movement. Overall Improvement % Improvement: 60 Objective Objective/Function: Walking well and transitioning well. Ambulates I, steps reciprocally with one rail. Goals Goal 1:: Patient will report participation in home exercise program activities a minimum of 5 days per week, as adjunct to skilled physical therapy intervention in preparation for independent home management upon discharge. Goal Progress: compliant? Goal 2:: Patient will report an increase of 9 points on the LEFS to show minimal clinical significant difference on patients functional outcome measure. Goal Progress: Goal Met Goal 3:: Patient will perform 17 sit to stands in 30 sec to be within norms for his age group to ease functional ADL's. Goal Progress: Goal Met Plan Plan: d/c at patient request to HEP. D/C Information Discharge Comments: Pt to continue via HEP. d/c sentence: If there are questions or concerns regarding this patient's physical therapy, please feel free to call me at [phone]. Thank you for the referral of this patient. Sincerely, Joshua Muñoz, DPT, OCS, CSCS Balance/Gait/Functional tests Balance/Special Test Scores Functional Gait Assessment Score: 27 % Disability: 10.0000 CATSIB Score (Max score 120 seconds): 120 Lower Extremity Functional Score: 39 30 Second Chair Rise Test Seconds: 19 Improvement % Improvement: 60
== END 2023-03-04 12:39 | disposition home or self-care (01) ==
LOC: PT 10:00
PROVIDERS: PCP Family Medicine
DX: C71.1 Malignant neoplasm of frontal lobe (principal)
CPT/HCPCS: 97110; 97162; 97164; 97530